=== PATIENT | male | born 1935 | race Hispanic/Latino ===

== ENCOUNTER 2023-12-12 21:06 | Inpatient (IN) | payer OTHER, SELFPAY ==
[2023-12-12 13:20] VITALS: BP 120/72
[2023-12-12 13:43] LABS: % Basophils 0.6 % (0-2); % Eosinophils 1.4 % (0-6); % Immature Granulocytes 0.2 % (0-0.5); % Lymphocytes 11.8 % (20.5-51.1); % Monocytes 8.4 % (1.7-9.3); % Neutrophils 77.6 % (42.2-75.2); Absolute Eosinophils 0.1 10^3/uL (0-0.7); Absolute Lymphocytes 0.6 10^3/uL (1.2-3.4); Absolute Monocytes 0.4 10^3/uL (0.1-0.6); Absolute Neutrophils 3.9 10^3/uL (1.4-6.5); Hematocrit 41.7 % (39.0-52.0); Hemoglobin 13.7 g/dL (13.0-18.0); Mean Corp Hgb Conc. 32.9 g/dL (33.0-37.0); Mean Corpuscular Hgb 31.5 pg (27.0-31.0); Mean Corpuscular Volume 95.9 fL (80.0-94.0); Mean Platelet Volume 10.6 fL (7.4-10.4); Nucleated Red Blood Cells % 0 % (-); Platelet Count 146 10^3/uL (130-400); Red Blood Cell Count 4.35 10^6/uL (4.70-6.10); Red Cell Dist. Width 12.9 % (11.5-14.5)
[2023-12-12 14:06] LABS: ALT (SGPT) 35 U/L (0-50); AST (SGOT) 42 U/L (17-59); Albumin 3.2 g/dl (3.5-5.0); Alkaline Phosphatase 57 U/L (38-126); Blood Urea Nitrogen 19 mg/dl (9-20); Calcium 8.9 mg/dl (8.4-10.2); Carbon Dioxide 36 mmol/L (22-30); Chloride 90 mmol/L (98-107); Glucose 145 mg/dl (70-99); Potassium 4.3 mmol/L (3.5-5.1); Sodium 130 mmol/L (135-145); Total Bilirubin 1.1 mg/dl (0.2-1.3); Total Protein 5.9 g/dl (6.3-8.2); eGFR > 60.00
--- NOTE | 2023-12-12 16:06 | ED.GENMED ---
History of Present Illness
General
Chief Complaint: Breathing Problem
Time Seen by Provider: 12/12/23 15:29
Travel History
Have you had any contact with someone who has COVID-19?: No
Do you have any symptoms of coronavirus? Fever > 100 degrees, chills, cough, shortness of breath, sore throat, loss of taste or smell, muscle aches, or headache?: No
History of Present Illness
History of Present Illness:
88-year-old male with history of A-fib and heart failure with reduced ejection fraction presents to the emergency department with multitude of complaints. He states that he has been short of breath for the past 4 months but acutely worse in the
past 3 to 4 days. 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 Has not taken these in at least 1 week. His last echocardiogram was in 2022 showing ejection
fraction of 30 to 35%. Secondarily the patient notes progressive worsening of weakness and difficulty walking, has been undergoing outpatient evaluation through neurology for an neuromuscular disorder, approximately 1 week ago had an outpatient EMG
with the following findings:
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
disease cannot be ruled out due to active denervation in bilateral L5/S1 nerve root innervated muscles'
Past History
Past History
ED Past Medical History: Arrthythmia
ED Past Surgical History: Cardiac
Social History
Tobacco: Non-smoker
Alcohol: None
Drug: None
Review of Systems
Review of Systems
Allergies reviewed?: Yes
All Other Systems: ROS reviewed and negative except as documented in HPI and ROS
Phy Exam
Physical Exam
Physical Exam:
GEN: Well appearing, NAD, WDWN
HEENT: Oral mucosa moist, no scleral icterus
Cardiac: Regular rate, regular rhythm
Lung: Tachypneic with conversational dyspnea, diminished bibasilar breath sounds
MSK: No gross deformity or injuries, 1+ pitting edema bilateral lower extremities
Skin: Good color, no pallor or jaundice, no rashes
Neuro: AO x3, moves all extremities freely
Psych: Calm, cooperative
Scores
Heart Failure Risk
Heart Failure Risk Score: Yes
History of Stroke or TIA: No
History of intubation for respiratory distress: No
Heart rate on ED arrival >/= 110: No
SaO2 <90% on arrival on room air: No
HR >/=110 during 3min walk test (or too ill to perform test): Yes
ECG has acute ischemic changes: No
Urea >/=12mmol/L (BUN 33.6mg/dL): No
Serum CO2>/=35mmol/L: Yes
Troponin I or T elevated to MS Level (0.4mg/dL): No
NT-proBNP >/=5,000ng/L (5,000pg/ml): No
HF Risk Score: 4
Admission Status: HIGH RISK 26.1% Consider SNF treatment or admission to hospital
Course
Orders/Labs/Results
Orders:
Orders
12/12/23 13:34
Complete Blood Count/With Diff Urgent
Comprehensive Metabolic Panel Urgent
12/12/23 15:41
Prothrombin Time Urgent
12/12/23 15:42
CR Chest - 2 Views Urgent
Comment:
Reason For Exam: SOB
12/12/23 18:29
NT-proBNP Urgent
Troponin I Urgent
Abnormal Lab Results
12/12/23 12/12/23
13:34 15:41
RBC 4.35 L 10^6/uL
(4.70-6.10)
MCV 95.9 H fL
(80.0-94.0)
MCH 31.5 H pg
(27.0-31.0)
MCHC 32.9 L g/dL
(33.0-37.0)
MPV 10.6 H fL
(7.4-10.4)
Absolute Lymphs (auto) 0.6 L 10^3/uL
(1.2-3.4)
Neutrophils % 77.6 H %
(42.2-75.2)
Lymphocytes % 11.8 L %
(20.5-51.1)
PT 42.1 H Sec
(11.4-14.6)
Sodium 130 L mmol/L
(135-145)
Chloride 90 L mmol/L
(98-107)
Carbon Dioxide 36 H mmol/L
(22-30)
Glucose 145 H mg/dl
(70-99)
Total Protein 5.9 L g/dl
(6.3-8.2)
Albumin 3.2 L g/dl
(3.5-5.0)
12/12/23 13:34
12/12/23 13:34
Vital Signs
Initial and Last Documented VS:
Initial Vital Signs
Temp Pulse Resp BP Pulse Ox
98.7 F 105 18 120/72 93
12/12/23 13:20 12/12/23 13:20 12/12/23 13:20 12/12/23 13:20 12/12/23 13:20
Last Documented Vital Signs
Temp Pulse Resp BP Pulse Ox
98.7 F 107 22 150/89 95
12/12/23 13:20 12/12/23 18:45 12/12/23 18:45 12/12/23 18:00 12/12/23 18:45
MDM/Problems Addressed
MDM/Problems Addressed:
Patient's respiratory symptoms are most likely due to acute CHF evidenced by elevated BNP as well as chest x-ray with (independently interpreted by me) revealing cardiomegaly and bilateral trace pleural effusions. In regards to his ambulatory
dysfunction, this is due to an ongoing progressive neuromuscular disorder, does not appear that a definitive diagnosis has been made as of yet however this is certainly contributing to severe functional debility evidenced by poor appetite. I feel
the patient is appropriate for inpatient admission for IV diuresis as his inability to tolerate a significant amount of p.o. food or fluids will make home diuresis challenging as dehydration would potentially become a problem quickly. Will admit to
the hospitalist service for further management
*Critical Care Note
Total Time (30-74mins, 75-104mins- exclusive of procedures): Not Applicable
ED Attending Note
-
Portions of this chart may have been created with voice recognition software.� Occasional wrong word or��sound alike� substitutions may have occurred due to the inherent limitations of voice recognition software.
Discharge Plan
Departure
Patient Disposition: Admit
Date of Disposition: 12/12/23
Time of Disposition: 19:30
Presentation/result/management discussed w/ accepting MD/DO: Hospitalist
Discharge Problem:
Acute HFrEF (heart failure with reduced ejection fraction), Neuromuscular disorder
Prescriptions:
No Action
atorvastatin [Lipitor] 40 mg Tablet
40 mg PO HS
carvedilol [Coreg] 25 mg Tablet
25 mg PO BID
acetaminophen [Tylenol] 325 mg Tablet
650 mg PO Q4HPRN PRN (Reason: mild pain)
Metamucil Packet
1 packet PO DAILY
Entresto 24-26 mg Tablet
1 tab PO BID
Rx Instructions:
patient has free samples 12/12/23
warfarin [Jantoven] 2 MG tablet
2 mg PO BID
Referrals:
Prakash Schreiber MD [Family Provider] -
Interventions
Interventions:
*Risk Screen - Suicide Last Done: 12/12/23 13:24
*General Assessment Last Done: 12/12/23 13:24
*Neglect/Abuse Screening Last Done: 12/12/23 13:24
ED- Cardiac Assessment Last Done: 12/12/23 16:26
ED- Neurological Assessment Last Done: 12/12/23 16:26
ED- Pulmonary Assessment Last Done: 12/12/23 16:26
[2023-12-12 16:13] VITALS: BP 125/87
[2023-12-12 16:34] LABS: INR 4.33; PT 42.1 Sec (11.4-14.6)
[2023-12-12 17:00] VITALS: BP 127/82
[2023-12-12 18:00] VITALS: BP 150/89
[2023-12-12 19:27] LABS: NT-proBNP 3010 pg/ml; Troponin I < 0.012 ng/ml
--- NOTE | 2023-12-12 20:06 | HPS.HSE ---
Addendum entered and electronically signed by Julian Mercado MD 12/12/23 22:08:
INR of 4.3. Hold evening dose of Coumadin. Coumadin can also be changed to once a day, defer to cardiology. Recheck INR in AM.
Original Note:
Family Physician
-
Family Physician: Prakash Schreiber
Chief Complaint
-
shortness of breath
History of Present Illness
88-year-old male past medical history of atrial fibrillation, HFrEF, persistent atrial fibrillation, presenting for shortness of breath for the past 4 months acutely worse in the past 3 to 4 days. Shortness of breath worse with exertion when he
lies down flat. 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 He has not taken diuretic in at least 1 week.
Patient has been having symptoms of decreased appetite, weight loss of 50 pounds in the past few month as well as abdominal distention and inability to eat as much as before. He saw a GI doctor and had barium swallow done which was unremarkable.
Endoscopy was being considered. Patient also had several laboratory tests which were unremarkable.
Patient has also been having progressive weakness and difficulty walking and initially saw physical therapy who recommended he follow-up with neurology.
He has been undergoing outpatient evaluation with neurologist at [place] for neuromuscular disorder. 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
mixture of axonal degeneration and demyelination with active denervation and chronic nerve degeneration, however no motor neuron disease cannot be ruled out due to active denervation in bilateral L5/S1 nerve root innervated muscles'. His
neurologist was considering diagnosis of ALS.
No smoking or alcohol use.
Medical History
Past Medical History
Past Medical History: Reports Other (atrial fibrillation, HFrEF, persistent atrial fibrillation)
Past Surgical History: Reports None
Social History
Tobacco: Non-smoker
Alcohol: None
Drug: None
Family History
Family History: Not pertinent
Allergies / Home Medications
Allergies reflects when Allergies were last updated in [facility].
Home Medications with original date entered in [employer]
Allergy/Medication List:
Allergies
Allergy/AdvReac Type Severity Reaction Status Date / Time
lisinopril Allergy Unknown Verified 12/12/23 13:20
valsartan Allergy Unknown Verified 12/12/23 13:20
Home Medications
acetaminophen 325 mg tablet (Tylenol) 650 mg PO Q4HPRN PRN mild pain 12/12/23
atorvastatin 40 mg tablet (Lipitor) 40 mg PO HS 12/12/23
carvedilol 25 mg tablet (Coreg) 25 mg PO BID 12/12/23
psyllium 1 packet PO DAILY 12/12/23
sacubitril 24 mg-valsartan 26 mg tablet (Entresto) 1 tab PO BID 12/12/23
warfarin 2 mg tablet (Jantoven) 2 mg PO BID 12/12/23
Review of Systems
-
History Source: Patient
A 12 point ROS was completed and negative except as noted: Yes
Constitutional: Reports No Symptoms
EENT: Reports No Symptoms
Respiratory: Reports See HPI
Cardiac: Reports See HPI
Abdomen/GI: Reports No Symptoms
: Reports No Symptoms
Musculoskeletal: Reports No Symptoms
Skin: Reports No Symptoms
Neurological: Reports No Symptoms
Endocrine: Reports No Symptoms
Hematologic/Lymphatic: Reports No Symptoms
Psych: Reports No Symptoms
Physical Exam
Vital Signs
Vital Signs
Temp Pulse Resp BP Pulse Ox
98.7 F 92 26 150/89 96
12/12/23 13:20 12/12/23 19:45 12/12/23 19:45 12/12/23 18:00 12/12/23 19:45
Physical Exam
General: Well Developed, Well Nourished and No Apparent Distress
HEENT: NormoCephalic, Moist mucous membranes and Atraumatic
Respiratory: Clear
Cardiac: S1/S2, Regular Rhythm and Peripheral Edema; No Murmur or Rub
GI: Soft, Non Tender, Non Distended and Normal Bowel Sounds; No Organomegaly
Rectal: Deferred by Provider
Musculoskeletal: No Clubbing, No Cyanosis and No Edema
Skin: No Rash
Neuro: Nonfocal/grossly intact
Laboratory Results
-
12/12/23 13:34
12/12/23 13:34
Laboratory Results
PT 42.1 Sec (11.4-14.6) H 12/12/23 15:41
INR 4.33 12/12/23 15:41
Total Bilirubin 1.1 mg/dl (0.2-1.3) 12/12/23 13:34
AST 42 U/L (17-59) 12/12/23 13:34
ALT 35 U/L (0-50) 12/12/23 13:34
Alkaline Phosphatase 57 U/L (38-126) 12/12/23 13:34
Troponin I < 0.012 ng/ml 12/12/23 18:29
Data Reviewed
-
Lab Data: Labs Reviewed by me
Old Records: Reviewed
Impression/Plan
-
IMPRESSION:
PLAN:
# Acute on chronic HFrEF
-Chest x-ray shows cardiomegaly, possible mild pulmonary edema, report pending
-Cardiac BNP of 3000
-Check I's and O's, daily weight
-40 IV Lasix daily
-Continue Coreg
-Continue Entresto
-Cardiology consulted
Persistent atrial fibrillation
-Continue Coumadin
Underlying neuromuscular disorder
-Daughter requesting LP, recommend patient follow-up with his neurologist at [place] regarding further testing
-PT/OT
Lack of appetite/ weight loss
-Unclear etiology, could be related to underlying neuromuscular disorder
-Continue to follow-up with GI
Full code
DVT prophylaxis�Coumadin
Cardiac diet
[2023-12-12] MEDS: LASIX 40 MG IV (20:25)
[2023-12-12 22:00] VITALS: BP 139/95
[2023-12-12] MEDS: LIPITOR 40 MG PO (22:41)
[2023-12-13] VITALS (20 sets, daily range): BP systolic 63–125; BP diastolic 40–75; O2SAT 94; BMI 21.2; BMI 19.6
[2023-12-13 04:34] LABS: % Basophils 0.6 % (0-2); % Eosinophils 0.4 % (0-6); % Immature Granulocytes 0.3 % (0-0.5); % Lymphocytes 12.6 % (20.5-51.1); % Monocytes 7.7 % (1.7-9.3); % Neutrophils 78.4 % (42.2-75.2); Absolute Lymphocytes 0.9 10^3/uL (1.2-3.4); Absolute Monocytes 0.5 10^3/uL (0.1-0.6); Absolute Neutrophils 5.3 10^3/uL (1.4-6.5); Hematocrit 44.3 % (39.0-52.0); Hemoglobin 14.6 g/dL (13.0-18.0); Mean Corpuscular Hgb 31.9 pg (27.0-31.0); Mean Corpuscular Volume 96.7 fL (80.0-94.0); Mean Platelet Volume 11.1 fL (7.4-10.4); Nucleated Red Blood Cells % 0 % (-); Platelet Count 171 10^3/uL (130-400); Red Blood Cell Count 4.58 10^6/uL (4.70-6.10); Red Cell Dist. Width 13.1 % (11.5-14.5); White Blood Cell Count 6.7 10^3/uL (4.8-10.8)
[2023-12-13 04:49] LABS: INR 3.75; PT 37.6 Sec (11.4-14.6)
[2023-12-13 04:59] LABS: ALT (SGPT) 36 U/L (0-50); AST (SGOT) 44 U/L (17-59); Albumin 3.7 g/dl (3.5-5.0); Alkaline Phosphatase 63 U/L (38-126); Blood Urea Nitrogen 17 mg/dl (9-20); Calcium 8.9 mg/dl (8.4-10.2); Carbon Dioxide 39 mmol/L (22-30); Chloride 90 mmol/L (98-107); Glucose 90 mg/dl (70-99); Potassium 4.2 mmol/L (3.5-5.1); Sodium 132 mmol/L (135-145); Total Bilirubin 1.1 mg/dl (0.2-1.3); Total Protein 6.6 g/dl (6.3-8.2); eGFR > 60.00
--- NOTE | 2023-12-13 07:22 | CON.CAR ---
Addendum entered and electronically signed by Kevin Kraus MD 12/13/23 12:58:
I saw and examined the patient.
The ESTATE PLANNING ATTORNEY or PA's note was reviewed and I agree with the note.
Comment: General: Well developed, well nourished in NAD.
Neck: Supple, no JVD, HJR, carotids +2 B/L, no bruits bilaterally.
Heart: Non displaced PMI, Irreg,, no murmurs, No S3, S4, no rubs.
Lungs: Scattered rhonchi
Abdomen: Normal bowel sounds, soft, non-tender, non-distended.
Extremities: No clubbing, cyanosis or edema bilaterally.
Neuro: Grossly nonfocal, awake, alert and oriented x3.
Tolu has a history of cardiomyopathy with ejection fraction of 35 to 40% in May 2023, chronic systolic CHF, permanent atrial fibrillation on chronic Coumadin, moderate MR. He presents with worsening shortness of breath and acute systolic CHF also
appears to have poorly controlled atrial fibrillation at rest with heart rates in the 100s.
Discussed with patient, , daughter at bedside. He has been reluctant to do procedures in the past and defibrillator has been considered on multiple visits. Of note he had called the office in the past with complaints of edema and took 2 doses
of Lasix but stopped it on his own.
Will attempt to diurese with IV Lasix. Will add amiodarone for rate control of atrial fibrillation. Will check echocardiogram. Will assess after treatment..
Original Note:
Consultation
Consultation Request
Date/Time Consultation Requested: 12/12/23 at 2307
Date/Time Consultation Performed: 12/13/23 at 0723
Requesting Provider: Dr. Garza
Performing Provider: Dr. Parham
Reason for Consultation: Acute HF
Medical History
-
History of Present Illness:
Patient came to [facility] yesterday with increased SOB and is now admitted with acute HF and cardiology has been consulted. Patient says that he started to feel poorly about 6 weeks ago, but he was trying to wait until his scheduled office visit with
Efra 12/19/23. Patient says that he has orthopnea, CASTILLO, edema and now resting SOB so he finally came to [facility] last night. Patient is not sure what his dry weight is, but at last office visit 08/23/23 he weighed 139 lbs and today he weighs 135 lbs.
Patient says that he has not been eating well. At office visit 08/23/23 it was discovered that patient stopped Lasix on his own due to constipation, but he was agreeable to restart Lasix 20 mg PO daily. Patient is no longer taking Lasix for unclear
reasons, but says that he watches his salt and fluid intake although cannot say what the daily limitations are.
PMH:
Chronic HFrEF
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
Permanent Afib
Chronic warfarin OAC managed by [facility]
h/o moderate MR
Past Medical History
Past Medical History: Other (in HPI)
Past Surgical History: Cardiac (PVI 2010)
Social History
Tobacco: Non-Smoker
Alcohol: None
Drug: None
Personal:
Living: With Family
Family History
Family History: Reviewed & Not Pertinent
Allergies / Home Medications
Allergy/AdvReac Type Severity Reaction Status Date / Time
lisinopril Allergy Unknown Verified 12/12/23 13:20
valsartan Allergy Unknown Verified 12/12/23 13:20
Medication Instructions Recorded Confirmed Type
acetaminophen 325 mg tablet 650 mg PO Q4HPRN PRN mild pain 12/12/23 12/12/23 History
(Tylenol)
atorvastatin 40 mg tablet (Lipitor) 40 mg PO HS 12/12/23 12/12/23 History
carvedilol 25 mg tablet (Coreg) 25 mg PO BID 12/12/23 12/12/23 History
psyllium 1 packet PO DAILY 12/12/23 12/12/23 History
sacubitril 24 mg-valsartan 26 mg 1 tab PO BID 12/12/23 12/12/23 History
tablet (Entresto)
warfarin 2 mg tablet (Jantoven) 2 mg PO BID 12/12/23 12/12/23 History
Review of Systems
-
History Source: Patient
All other systems: Negative unless noted
Physical Exam
Vital Signs
Temp Pulse Resp BP Pulse Ox
98.5 F 102 32 104/65 98
12/13/23 03:00 12/13/23 06:15 12/13/23 06:34 12/13/23 02:00 12/13/23 06:15
GEN: NADJeison RIOSO x3
HEENT: EOMI, MMM
LUNGS: CTA B/L without wheeze or rales
CV: Irreg irreg and fast, S1/S2, no murmur
ABD: soft, BS+, NT, ND
EXT: +1 B/L LE edema. No clubbing, cyanosis or lesions B/L
NEURO: Gross non-focal
SKIN: Warm, dry and pink. No rash
Lab Results
12/13/23 04:28
12/13/23 04:28
Troponin I < 0.012 ng/ml 12/12/23 18:29
Rxx-S-Nfnnxhgarvy Pept 3010 pg/ml 12/12/23 18:29
Impression / Plan
-
PCP: Dr. Prakash Schreiber
Cardiology: Dr. Kraus
Impression:
Acute hypoxemic respiratory insufficiency
Acute on chronic HFrEF
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
Permanent Afib
Chronic warfarin OAC managed by [facility]
h/o moderate MR
EVE 2010: EF 30%, moderate MR with 2 distinct jets
�
Plan:
-Patient came to [facility] yesterday with increased SOB and is now admitted with acute HF and cardiology has been consulted. Patient says that he started to feel poorly about 6 weeks ago, but he was trying to wait until his scheduled office visit with
Dr. Kraus 12/19/23. Patient says that he has orthopnea, CASTILLO, edema and now resting SOB so he finally came to [facility] last night. Patient is not sure what his dry weight is, but at last office visit 08/23/23 he weighed 139 lbs and today he weighs 135
lbs. Patient says that he has not been eating well. At office visit 08/23/23 it was discovered that patient stopped Lasix on his own due to constipation, but he was agreeable to restart Lasix 20 mg PO daily. Patient is no longer taking Lasix for
unclear reasons, but says that he watches his salt and fluid intake although cannot say what the daily limitations are.
-Patient is in acute HF and requiring oxygen at 2 L NC, but was not on supplemental oxygen prior to admission.
-Last office note from 08/23/23 reviewed and patient was prescribed Lasix 20 mg PO daily, but he is no longer taking for unclear reasons. He has previously stopped Lasix due to constipation. Will start Lasix 40 mg IV daily now.
-Dry weight not clear and will need to establish a new dry weight at time of discharge.
-Check echo
-GDMT includes Coreg 25 mg BID and Entresto 24/26 mg BID.
-Aldactone previously stopped due to hypotension.
-No ECG was checked. ECG ordered by me, will review.
-Afib is permanent. HRs controlled with Coreg 25 mg BID which has been continued.
-Patient is chronically on warfarin managed by [facility] with an INR goal of 2-3. INR was supratherapeutic at 4.33 on admission 12/12/23 and warfarin was held. INR drifted down to 3.75 on 12/13/23.
[2023-12-13] MEDS: COREG PO ×2 (08:17→20:35)
[2023-12-13] MEDS: ENTRESTO 24 MG/26 MG 1 TAB PO ×2 (08:17→21:23)
[2023-12-13] MEDS: METAMUCIL, KONSYL 1 PACKET PO (08:18)
[2023-12-13] MEDS: LASIX 40 MG IV (10:00)
--- NOTE | 2023-12-13 11:19 | W.PN.HOSP.TC ---
Today's Communication/Plan
-
Had to hold his carvedilol this morning due to underlying hypotension
Awaiting 2D echocardiogram and cardiology input
Continue to hold warfarin and DCA will manage
Continued attempted diuresis noting ongoing hypotension
Will consider neurology input but already followed at [facility] and would recommend further follow-up as outpatient with them
Assessment / Plan
Assessment / Plan
88-year-old male past medical history of atrial fibrillation, HFrEF, persistent atrial fibrillation, presenting for shortness of breath for the past 4 months acutely worse in the past 3 to 4 days.� Shortness of breath worse with exertion when he
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
Patient has been having symptoms of decreased appetite, weight loss of 50 pounds in the past few month as well as abdominal distention and inability to eat as much as before.� He saw a GI doctor and had barium swallow done which was unremarkable.�
Endoscopy was being considered.� Patient also had several laboratory tests which were unremarkable.
Patient has also been having progressive weakness and difficulty walking and initially saw physical therapy who recommended he follow-up with neurology.
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
mixture of axonal degeneration and demyelination with active denervation and chronic nerve degeneration, however no motor neuron disease cannot be ruled out due to active denervation in bilateral L5/S1 nerve root innervated muscles'.� His
neurologist was considering diagnosis of ALS.
No smoking or alcohol use.
# Acute on chronic HFrEF
-Chest x-ray shows cardiomegaly, possible mild pulmonary edema, report pending
-Cardiac BNP of 3000
-Check I's and O's, daily weight
-40 IV Lasix daily
-Continue Coreg
-Continue Entresto
-Cardiology consulted
Persistent atrial fibrillation
-Continue Coumadin
-Supratherapeutic on presentation initial course held
-Managed by [facility]
Underlying neuromuscular disorder
-Daughter requesting LP,� recommend patient follow-up with his neurologist at [place] regarding further testing
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
degeneration, however no motor neuron disease cannot be ruled out due to active denervation in bilateral L5/S1 nerve root innervated muscles'.� His neurologist was considering diagnosis of ALS.
-PT/OT
Lack of appetite/ weight loss
-Unclear etiology, could be related to underlying neuromuscular disorder
-Continue to follow-up with GI
Full code
DVT prophylaxis�Coumadin
Cardiac diet
Anticipated Discharge: 24 - 48 hours
Subjective/Interval History
-
Date of Service: December 13, 2023
Patient in no acute distress remains short of breath and states that he gets easily short of breath even after lying down reportedly for at least the last several weeks admits to noncompliance with Lasix for at least 6 months remains on supplemental
oxygen of which she does not use at home
Objective Data
-
Labs:
Laboratory Results
12/13/23
04:28
WBC 6.7
Hgb 14.6
Hct 44.3
Plt Count 171
PT 37.6 H
INR 3.75
Sodium 132 L
Potassium 4.2
Chloride 90 L
Carbon Dioxide 39 H
BUN 17
Creatinine 0.8
Glucose 90
Calcium 8.9
Total Bilirubin 1.1
AST 44
ALT 36
Alkaline Phosphatase 63
Vital Signs:
Vital Signs
Temp Pulse Resp BP Pulse Ox
98.5 F 100 22 63/55 98
12/13/23 03:00 12/13/23 11:00 12/13/23 11:00 12/13/23 11:00 12/13/23 11:00
I&O
12/12/23 12/13/23 12/14/23
06:59 06:59 06:59
Output Total 300 / 300
Balance -300 / -300
Review of Systems
-
History Source: Patient
Respiratory: Reports Trouble Breathing
Musculoskeletal: Reports Edema (Left lower extremity always worse than right)
Physical Exam
-
General: Comfortable
HEENT: Normocephalic
Respiratory: Rales and Crackles
Cardiac: Irregular Rhythm, Murmur and Tachycardic
GI: Soft and Nondistended
Musculoskeletal: Edema, Left Lower Extrem
Neuro: Awake
Psych: Calm
--- NOTE | 2023-12-13 16:00 | PTCARENOTE ---
12/13- Patient oriented and transferred to unit without issue. AAOX3, on 2L O2 with nonproductive deep wet cough. Currently denies any requests or issues.
[2023-12-13] MEDS: LIPITOR 40 MG PO (21:23)
[2023-12-13] MEDS: MELATONIN 3 MG PO (21:23)
[2023-12-13] MEDS: COREG 12.5 MG PO (21:23)
--- NOTE | 2023-12-13 23:42 | PTCARENOTE ---
Addendum entered by Hamzah Borrero RN 12/14/23 04:50:
Pt sustaining 120s-30s with spikes to 140s-50s with little movement. BP 112/67. PEOPLESOFT ANALYST Kenny Gonzalez made aware, 2.5mg IV lopressor ordered, STAT Mag ordered.
Original Note:
Pt Afib HR sustaining 110s-120s. BP taken twice first 71/40, second 73/39. Pt non symptomatic. Kenny Andrew made aware, PEOPLESOFT ANALYST told to place pt in Trendelenburg position and recheck in 1 hour, no further orders at this time.
[2023-12-14] VITALS (11 sets, daily range): BP systolic 64–112; BP diastolic 48–69; BMI 19.5
--- NOTE | 2023-12-14 04:12 | W.PN.UPDATE ---
Update Note
Progress Note Update
RN notfied SUPERVISOR NET MAKING at 96/52 HR 98, Coreg 12.5mg ordered for HR control and held the Coreg 25mg PO at night. BP noted to be soft in 70's, but came up in one hour at 98/57 HR 110. Patient asymptomatic upon evaluation
At 0415 RN notified BP 112/67 HR sustaining 120's-130's, HR increase to 140's with ambulation. Will give Lopressor 2.5mg IV now and will do CBC BMP Mag now.
[2023-12-14] MEDS: LOPRESSOR 2.5 MG IV (04:34)
[2023-12-14 05:16] LABS: Magnesium 1.6 mg/dl (1.6-2.3)
--- NOTE | 2023-12-14 08:15 | PTCARENOTE ---
12/14- Patient's currently in Rapid AFib on electronic device monitor with HR sustaining in 130s. BP=85/55, so morning Coreg held. Patient is AAOX3, drowsy, lightheaded, but skin=warm/pink/dry. Patient has EFRedHF. Notified Cardiology PA. Will continue
to monitor.
[2023-12-14] MEDS: COREG PO ×2 (08:18→20:42)
[2023-12-14] MEDS: ENTRESTO 24 MG/26 MG 1 TAB PO (08:19)
[2023-12-14] MEDS: METAMUCIL, KONSYL 1 PACKET PO (08:20)
[2023-12-14] MEDS: LASIX 40 MG IV (08:21)
--- NOTE | 2023-12-14 08:55 | W.PN.CARDCBS ---
Documented by User: Meryl Huerta PA-C 12/14/23 12:37
Today's Communication / Plan
-
Start amio 200 mg TID
Impression / Plan
-
PCP: Dr. Prakash Schreiber
Cardiology: Dr. Kraus
Impression:
Acute hypoxemic respiratory insufficiency
Acute on chronic HFrEF
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
Permanent Afib with RVR
Chronic warfarin OAC managed by [facility]
h/o moderate MR
EVE 2010: EF 30%, moderate MR with 2 distinct jets
Echo 06/14/23: EF 35-40%, mild conc LVH, mild MR, aortic sclerosis without stenosis
Echo 12/14/23: Study pending
�
Plan:
-Patient with known permanent Afib. HRs faster since admission. Outpatient dose of Coreg 25 mg BID ordered, but doses being held due to hypotension. Will add definitive hold parameters.
-Start amiodarone 200 mg TID.
-LFTs normal. Check TSH
-Repeat echo pending
-Weight down at least 1 lb overnight with Lasix 40 mg IV daily. Patient was not taking Lasix prior to admission. He stopped Lasix PO at home on his own for the 2nd time prior to this admission.
-Dry weight not clear and will need to establish a new dry weight at time of discharge.
-Continues to require oxygen at 2 L NC, but was not on supplemental oxygen prior to admission.
-Echo ordered and pending
-GDMT includes Coreg 25 mg BID and Entresto 24/26 mg BID.
-Aldactone previously stopped due to hypotension.
-ECG reviewed by me shows Afib in RVR
-Patient is chronically on warfarin managed by [facility] with an INR goal of 2-3. INR was supratherapeutic at 4.33 on admission 12/12/23 and warfarin was held. INR drifted down to 2.68 on 12/14/23.
HPI: Patient came to [facility] yesterday with increased SOB and is now admitted with acute HF and cardiology has been consulted. Patient says that he started to feel poorly about 6 weeks ago, but he was trying to wait until his scheduled office visit
with Dr. Kraus 12/19/23. Patient says that he has orthopnea, CASTILLO, edema and now resting SOB so [facility]. Patient is not sure what his dry weight is, but at last office visit 08/23/23 he weighed 139 lbs and today he weighs
135 lbs. Patient says that he has not been eating well. At office visit 08/23/23 it was discovered that patient stopped Lasix on his own due to constipation, but he was agreeable to restart Lasix 20 mg PO daily. Patient is no longer taking Lasix for
unclear reasons, but says that he watches his salt and fluid intake although cannot say what the daily limitations are.
Progress Note - Crossing Watchman
Subjective
Date of Service: December 14, 2023
He does not feel palpitations
Objective
Labs:
12/13/23 04:28
12/13/23 04:
Labs
Hgb 14.6 g/dL (13.0-18.0) 12/13/23 04:28
Hct 44.3 % (39.0-52.0) 12/13/23 04:28
Plt Count 171 10^3/uL (130-400) 12/13/23 04:
PT 37.6 Sec (11.4-14.6) H 12/13/23 04:
INR 3.75 12/13/23 04:28
Sodium 132 mmol/L (135-145) L 12/13/23 04:
Potassium 4.2 mmol/L (3.5-5.1) 12/13/23 04:
BUN 17 mg/dl (9-20) 12/13/23 04:
Creatinine 0.8 mg/dL (0.7-1.3) 12/13/23 04:
Glucose 90 mg/dl (70-99) 12/13/23 04:28
Troponins
12/12/23 12/12/23 12/12/23
15:41 18:21 18:29
Troponin I Cancelled Cancelled < 0.012
Vital Signs and I&O:
Vital Signs
Temp Pulse Resp BP Pulse Ox
98.1 F 133 20 88/60 96
12/14/23 04:03 12/14/23 08:19 12/14/23 04:03 12/14/23 08:19 12/14/23 04:03
Vital Signs
Temp Pulse Resp BP Pulse Ox
98.1 F 133 20 88/60 96
12/14/23 04:03 12/14/23 08:19 12/14/23 04:03 12/14/23 08:19 12/14/23 04:03
Intake & Output
12/12/23 12/13/23 12/14/23 12/15/23
06:59 06:59 06:59 06:59
Intake Total 900 / 900
Output Total 300 / 300 500 / 500
Balance -300 / -300 400 / 400
Physical Exam
Physical Exam
GEN: NAD. AAO x3
HEENT: EOMI, MMM
LUNGS: CTA B/L without wheeze or rales
CV: Irreg irreg and fast, S1/S2, no murmur
ABD: soft, BS+, NT, ND
EXT: +1 B/L LE edema. No clubbing, cyanosis or lesions B/L
NEURO: Gross non-focal
SKIN: Warm, dry and pink. No rash

Documented by User: Jack Kilgore MD 12/14/23 13:13
Impression / Plan
-
PCP: Dr. Prakash Schreiber
Cardiology: Dr. Kraus
Impression:
Acute hypoxemic respiratory insufficiency
Acute on chronic HFrEF
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
Permanent Afib with RVR
Chronic warfarin OAC managed by [facility]
h/o moderate MR
EVE 2010: EF 30%, moderate MR with 2 distinct jets
Echo 06/14/23: EF 35-40%, mild conc LVH, mild MR, aortic sclerosis without stenosis
Echo 12/14/23: Study pending
�
Plan:
-Patient with known permanent Afib. HRs faster since admission. Outpatient dose of Coreg 25 mg BID ordered, but doses being held due to hypotension. Will add definitive hold parameters.
-Start amiodarone 200 mg TID-hopefully this can help as an adjunct rate control agent
-LFTs normal. Check TSH
-Repeat echo pending
-Weight down at least 1 lb overnight with Lasix 40 mg IV daily. His weight on this admission is much lower than prior available weights, cardiac cachexia?
Patient was not taking Lasix prior to admission. He stopped Lasix PO at home on his own for the 2nd time prior to this admission.
-Dry weight not clear and will need to establish a new dry weight at time of discharge.
-Continues to require oxygen at 2 L NC, but was not on supplemental oxygen prior to admission.
-Echo ordered and pending
-GDMT includes Coreg 25 mg BID and Entresto 24/26 mg BID.
-Aldactone previously stopped due to hypotension.
-ECG reviewed by me shows Afib in RVR
-Patient is chronically on warfarin managed by [facility] with an INR goal of 2-3. INR was supratherapeutic at 4.33 on admission 12/12/23 and warfarin was held. INR drifted down to 2.68 on 12/14/23.
HPI: [facility] with increased SOB and is now admitted with acute HF and cardiology has been consulted. Patient says that he started to feel poorly about 6 weeks ago, but he was trying to wait until his scheduled office visit
with Dr. Kraus 12/19/23. Patient says that he has orthopnea, CASTILLO, edema and now resting SOB so he [facility]. Patient is not sure what his dry weight is, but at last office visit 08/23/23 he weighed 139 lbs and today he weighs
135 lbs. Patient says that he has not been eating well. At office visit 08/23/23 it was discovered that patient stopped Lasix on his own due to constipation, but he was agreeable to restart Lasix 20 mg PO daily. Patient is no longer taking Lasix for
unclear reasons, but says that he watches his salt and fluid intake although cannot say what the daily limitations are.
Progress Note - Crossing Watchman
Subjective
Date of Service: December 14, 2023
He does not feel palpitations
arousable but not oriented to place
--- NOTE | 2023-12-14 09:00 | PTCARENOTE ---
12/14- Administered Pacerone 200mg PO as ordered. Will recheck BP and HR. Patient is mildly confused but AAOX3, dizzy upon standing, but +pulses/sensationX4; Skin still warm/pink/dry; cyanotic fingernails. Patient had removed his NC, so POX=78%.
POX returned to 91% with 3L O2.
[2023-12-14] MEDS: PACERONE 200 MG PO ×3 (09:30→23:33)
--- NOTE | 2023-12-14 10:40 | W.PN.HOSP.TC ---
Today's Communication/Plan
-
Can to continue IV diuresis
Hypertension continues to be an issue and holding beta-blockade
Undergoing amiodarone loading/remains with RVR
Check PT/INR next 3 days after holding cardiology will dose
Assessment / Plan
Assessment / Plan
88-year-old male past medical history of atrial fibrillation, HFrEF, persistent atrial fibrillation, presenting for shortness of breath for the past 4 months acutely worse in the past 3 to 4 days.� Shortness of breath worse with exertion when he
lies down flat.� He is on diuretics from his functional analyst but he only takes it intermittently for leg swelling.� He has not taken diuretic in at least 1 week.
Patient has been having symptoms of decreased appetite, weight loss of 50 pounds in the past few month as well as abdominal distention and inability to eat as much as before.� He saw a GI doctor and had barium swallow done which was unremarkable.�
Endoscopy was being considered.� Patient also had several laboratory tests which were unremarkable.
Patient has also been having progressive weakness and difficulty walking and initially saw physical therapy who recommended he follow-up with neurology.
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
mixture of axonal degeneration and demyelination with active denervation and chronic nerve degeneration, however no motor neuron disease cannot be ruled out due to active denervation in bilateral L5/S1 nerve root innervated muscles'.� His
neurologist was considering diagnosis of ALS.
No smoking or alcohol use.
# Acute on chronic HFrEF
-Chest x-ray shows cardiomegaly, possible mild pulmonary edema, report pending
-Cardiac BNP of 3000
-Check I's and O's, daily weight
-40 IV Lasix daily
-Continue Coreg/reduced dosing due to hypotension and held yesterday
-Continue Entresto
-Noncompliance to diuretic management has been an issue
-Cardiology consulted
Persistent atrial fibrillation
-Cardiology added amiodarone remains with RVR
-Continue Coumadin
-Supratherapeutic on presentation initial course held
-Managed by [facility]
Underlying neuromuscular disorder
-Daughter requesting LP,� recommend patient follow-up with his neurologist at [facility] regarding further testing
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
degeneration, however no motor neuron disease cannot be ruled out due to active denervation in bilateral L5/S1 nerve root innervated muscles'.� His neurologist was considering diagnosis of ALS.
-PT/OT
Lack of appetite/ weight loss
-Unclear etiology, could be related to underlying neuromuscular disorder
-Continue to follow-up with GI
Full code
DVT prophylaxis�Coumadin
Cardiac diet
Anticipated Discharge: 24 - 48 hours
Subjective/Interval History
-
Date of Service: December 14, 2023
He looks less dyspneic although he admits to no improvement in his breathing especially in the morning. He is does state that there is less swelling.
Objective Data
-
Vital Signs:
Vital Signs
Temp Pulse Resp BP Pulse Ox
98.9 F 133 22 102/72 99
12/14/23 07:30 12/14/23 09:30 12/14/23 07:30 12/14/23 09:30 12/14/23 07:30
I&O
12/13/23 12/14/23 12/15/23
06:59 06:59 06:59
Intake Total 900 / 900
Output Total 300 / 300 500 / 500
Balance -300 / -300 400 / 400
Review of Systems
-
History Source: Patient
Constitutional: Reports Not Done and Fatigue
EENT: Reports No Symptoms Reported
Respiratory: Reports Trouble Breathing and Other (Remains on low-flow oxygen)
Cardiac: Reports No Symptoms
Abdomen/GI: Reports No Symptoms
Psych: Reports Depressed
Physical Exam
-
General: No Apparent Distress
HEENT: Normocephalic
Respiratory: Crackles
Cardiac: Irregular Rhythm and Tachycardic (RVR remains in the 140s at times)
GI: Soft and Nontender
Musculoskeletal: Edema, Right Lower Extrem and Edema, Left Lower Extrem (Improved/weight only down less than a half a kilo)
Neuro: Awake, Alert, Oriented and AO x 3
Data Reviewed
-
Total Time Spent with Patient (in minutes): 45
Labs: Labs Reviewed by me (Hemoglobin 14.6 and stable)
--- NOTE | 2023-12-14 11:00 | PTCARENOTE ---
12/14- Patient's HR is still sustaining in 120s in rapid AFib; BP= 88/55 manual, with 69/50 automatic. Notified PA, held Lopressor IV. Patient remains drowsy, AAOX3, skin=warm/pink/dry with cyanotic fingernails; POX=97% on 3L. Educated patient
and about CHF, Afib, his medications and deep breathing. Both verbalized understanding.
[2023-12-14 11:36] LABS: TSH Reflex To Free T4 1.42 uIU/ml (0.47-4.68)
[2023-12-14 11:59] LABS: INR 2.68; PT 28.9 Sec (11.4-14.6)
--- NOTE | 2023-12-14 13:02 | W.PN.UPDATE ---
Update Note
Progress Note Update
Called back to see patient for Afib in RVR and hypotension. Patient's only complaint is that he feels warm/hot around his rectum. No chest pain. Continues with stable hypoxia requiring 2 L since admission. Attempted tp push Lopressor 5 mg IV x1 and
BP 59/50 and then on recheck 88/50. Will cont with amiodarone 200 mg TID and add amiodarone gtt. Trying to move to IVU, but no beds. Order placed and he is in the queue. Talked with patient and , reviewed chart, talked with nursing and placed
orders for 33 minutes of critical care time.
[2023-12-14] MEDS: CORDARONE 518 MG IV (14:25)
--- NOTE | 2023-12-14 14:40 | PTCARENOTE ---
12/14- Began Amiodorone drip as ordered; checked VS as per Protocol. 15minute vitals showed BP=64/48, JS=775. Patient is resting in bed, AAOX3, mildly drowsy, skin=pale/warm/dry. Notified Physician.
--- NOTE | 2023-12-14 14:43 | PN.CDI ---
CDI
- -
CDI:
Physician Documentation Request
Admit Date: 12/12/23 21:06
Dear Doctor Kayla,
Patient admitted with acute on chronic systolic CHF.
Na level's documented below:
Laboratory Tests
12/12/23 12/13/23
13:34 04:28
Sodium 130 L 132 L
Based on the above, please clarify in the progress notes, the appropriate diagnosis, if significant, that supports the above abnormalities and additional evaluation, monitoring and/or treatment rendered:
Hyponatremia
Insignificant abnormal lab findings
Other
Unable to determine
Use of terms such as suspected, likely, concern for, or probable (associated with a specific diagnosis that is being evaluated, monitored, or treated as if it exists) are acceptable and can be coded in the inpatient setting, when documented at the
time of discharge.
Thank you,
Nuzhat HODGE,RN,CCDS
CDI Specialist
Available via [facility] text
Please use your independent medical judgment in providing your response.
[2023-12-14] MEDS: ProAmatine 5 MG PO (14:59)
--- NOTE | 2023-12-14 15:15 | CM ---
Patient seen bedside.
IA completed.
Patient lives with spouse and son in a 2 story home.
Patient ambulates with cane and has a RW.
Patient independent prior to admission, progressive weakness.
PT recommending home Health.
Patient does drive.
PCP: Dr Schreiber
Pharmacy: [facility]
Plan: home with VN
[2023-12-14] MEDS: ENTRESTO 24 MG/26 MG PO (20:42)
--- NOTE | 2023-12-14 21:32 | PTCARENOTE ---
Pt transferred to IVU. Pt AAOx3, on 2LO2 in no signs of acute distress, receiving nurses at bedside.
[2023-12-14] MEDS: TYLENOL 650 MG PO (23:32)
[2023-12-14] MEDS: LIPITOR 40 MG PO (23:32)
[2023-12-15] VITALS (13 sets, daily range): BP systolic 73–148; BP diastolic 43–132; BMI 19.5
--- NOTE | 2023-12-15 01:28 | PTCARENOTE ---
received patient from 4W at approx 2130. Afib on tele. bp [id number]/60s. amio gtt infusing-dose adjusted per order to 0.5 mg/min. R arm IV patent, no redness noted. labored breathing noted. patient states worsening breathing started at about
5 pm. lungs diminished throughout. 3L NC 92%. patient denies any cp. patient appears anxious. comfort measures provided. patient states sacral pain, 'soreness.' waffle cushion provided. elevated heels on pillows. patient requesting bengay for sacral
pain, 'I use it at home.' updated Rachel Cuevas [employer] on breathing and patient's request; see mar. PRN tylenol given for pain. once patient was settled, patient states improved breathing. appears more comfortable. 96% 3L NC. educated patient to inforn
RN with any changes. call teran within reach. makes needs known.
[2023-12-15 04:47] LABS: Hematocrit 37.3 % (39.0-52.0); Hemoglobin 12.3 g/dL (13.0-18.0); Mean Corpuscular Hgb 31.6 pg (27.0-31.0); Mean Corpuscular Volume 95.9 fL (80.0-94.0); Mean Platelet Volume 10.3 fL (7.4-10.4); Platelet Count 157 10^3/uL (130-400); Red Blood Cell Count 3.89 10^6/uL (4.70-6.10); Red Cell Dist. Width 12.8 % (11.5-14.5); White Blood Cell Count 7.4 10^3/uL (4.8-10.8)
[2023-12-15 05:05] LABS: PT 23.9 Sec (11.4-14.6)
[2023-12-15 05:21] LABS: Blood Urea Nitrogen 22 mg/dl (9-20); Calcium 8.6 mg/dl (8.4-10.2); Chloride 83 mmol/L (98-107); Estimated Creatinine Clearance 47 ml/min; Glucose 145 mg/dl (70-99); Potassium 3.6 mmol/L (3.5-5.1); Sodium 129 mmol/L (135-145); eGFR > 60.00
--- NOTE | 2023-12-15 05:30 | PTCARENOTE ---
Addendum entered by Daniel Melo RN 12/15/23 06:19:
R arm IV site removed (amio IV). improved bp 85/64 (72).
Original Note:
blood pressures this AM, 70s/40s-50s. HR Afib 80s-90s. patient denies any symptoms. AAOx3. updated Rachel Cuevas [employer]. Amio gtt discontinued per [employer].
[2023-12-15 05:36] LABS: Carbon Dioxide 35 mmol/L (22-30)
--- NOTE | 2023-12-15 07:30 | W.PN.HOSP.TC ---
Today's Communication/Plan
-
Amiodarone loading and dosing as per cardiology
Continue IV diuresis
Continue midodrine
Hyponatremia may have to back off on furosemide
Monitor BMP
Restart warfarin and dosing as per cardiology who manages as outpatient
Assessment / Plan
Assessment / Plan
88-year-old male past medical history of atrial fibrillation, HFrEF, persistent atrial fibrillation, presenting for shortness of breath for the past 4 months acutely worse in the past 3 to 4 days.� Shortness of breath worse with exertion when he
lies down flat.� He is on diuretics from his site lead but he only takes it intermittently for leg swelling.� He has not taken diuretic in at least 1 week.
Patient has been having symptoms of decreased appetite, weight loss of 50 pounds in the past few month as well as abdominal distention and inability to eat as much as before.� He saw a GI doctor and had barium swallow done which was unremarkable.�
Endoscopy was being considered.� Patient also had several laboratory tests which were unremarkable.
Patient has also been having progressive weakness and difficulty walking and initially saw physical therapy who recommended he follow-up with neurology.
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
mixture of axonal degeneration and demyelination with active denervation and chronic nerve degeneration, however no motor neuron disease cannot be ruled out due to active denervation in bilateral L5/S1 nerve root innervated muscles'.� His
neurologist was considering diagnosis of ALS.
No smoking or alcohol use.
# Acute on chronic HFrEF
-Chest x-ray shows cardiomegaly, possible mild pulmonary edema, report pending
-Cardiac BNP of 3000
-Check I's and O's, daily weight
-40 IV Lasix daily
-Continue Coreg/reduced dosing due to hypotension and held yesterday
-Continue Entresto
-Noncompliance to diuretic management has been an issue
-Cardiology consulted
Persistent atrial fibrillation
-Cardiology added amiodarone loading /heart rate improved remains hypotensive
- Coumadin/PT/INR today 2.1 can resume warfarin was supratherapeutic present on admission
-Managed by [facility]
Underlying neuromuscular disorder
-Daughter requesting LP,� recommend patient follow-up with his neurologist at [facility] [facility] regarding further testing
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
degeneration, however no motor neuron disease cannot be ruled out due to active denervation in bilateral L5/S1 nerve root innervated muscles'.� His neurologist was considering diagnosis of ALS.
-PT/OT
Lack of appetite/ weight loss
-Metastatic rather extensive GI workup at [facility] which he is going to continue to follow and I believe he is scheduled for a upper endoscopy
-Unclear etiology, could be related to underlying neuromuscular disorder
-Continue to follow-up with GI
Full code
DVT prophylaxis�Coumadin
Cardiac diet
Anticipated Discharge: Within 24 hours
Subjective/Interval History
-
Date of Service: December 15, 2023
In no distress heart rate improved remains hypotensive/went over his recent issues with weight loss and GI workup at [facility] and the need for further follow-up both with [facility] and [facility] in regards to his neuropathy.
Objective Data
-
Labs:
Laboratory Results
12/15/23
04:14
WBC 7.4
Hgb 12.3 L
Hct 37.3 L
Plt Count 157
PT 23.9 H
INR 2.10
Sodium 129 L
Potassium 3.6
Chloride 83 L
Carbon Dioxide 35 H
BUN 22 H
Creatinine 0.9
Glucose 145 H
Calcium 8.6
Vital Signs:
Vital Signs
Temp Pulse Resp BP Pulse Ox
98.1 F 98 20 85/64 96
12/15/23 04:15 12/15/23 07:00 12/15/23 04:15 12/15/23 05:53 12/15/23 04:15
I&O
12/14/23 12/15/23 12/16/23
06:59 06:59 06:59
Intake Total 900 / 900 950 / 950
Output Total 500 / 500 150 / 150
Balance 400 / 400 800 / 800
Review of Systems
-
History Source: Patient
Constitutional: Reports Weight Loss
Respiratory: Reports Other (Dyspnea on exertion)
Cardiac: Reports No Symptoms
Physical Exam
-
General: Appears Chronically Ill and Cachectic (Appears at least underweight)
HEENT: Normocephalic
Respiratory: Rales
Cardiac: Irregular Rhythm
GI: Soft, Nontender and Nondistended
Musculoskeletal: No Edema
Skin: IV Access / Catheter Site
Neuro: Awake and Alert
Data Reviewed
-
Total Time Spent with Patient (in minutes): 56
Labs: Labs Reviewed by me (PT/INR 2.1/sodium 129 chloride 83 creatinine 0.9 blood sugar 145)
[2023-12-15] MEDS: BenGay-Like 1 APPLIC TOPICAL ×4 (08:41→22:16)
[2023-12-15] MEDS: PACERONE 200 MG PO ×3 (08:41→22:16)
[2023-12-15] MEDS: COREG PO ×2 (08:41→09:00)
[2023-12-15] MEDS: METAMUCIL, KONSYL 1 PACKET PO (08:41)
[2023-12-15] MEDS: ENTRESTO 24 MG/26 MG PO ×2 (08:41→09:01)
[2023-12-15] MEDS: FLUSH (NSS) 1 FLUSH IV (08:42)
--- NOTE | 2023-12-15 09:03 | PTCARENOTE ---
Addendum entered by Anat Wen RN 12/15/23 09:05:
He is 96% on RA
Original Note:
Patient's BP was 95/63 with a HR of 94. I held his Coreg and Entresto as per order. Afib is noted on the monitor. He has no complaints of pain or SOB.
--- NOTE | 2023-12-15 09:55 | CM ---
Addendum entered by Chelsea Bowden 12/15/23 13:59:
Received consult regarding checking on co-pay for Eliquis 5 mg po bid. His co-pay would be $47.00 a month or $94.00 for 90 day supply via mail order. Reviewed co-pay with son and and Mrs. Brooks. They are agreeable to the co-pay. Placed the
one month free coupon in the red discharge folder. Also reviewed [facility] with Mr. Brooks and by phone to his spouse. Both of them would like to wait and discuss this with each other before making final decision regarding [facility].
Medical work-up in progress. The discharge plan is to return home with his spouse and son when medically stable.
Original Note:
Reviewed chart. Mr. Brooks was transferred to IVU. Met with Mr. Brooks to review discharge plans. He states prior to admission he resides with his spouse and son in a two story home. He states he has to go up a full flight of steps to
bedroom/full bathroom. He states he has a powder room on the first floor. He states he stays on the first floor and only goes upstairs to sleep. He only goes up the stairs once a day. He states prior to admission he ambulates with a single point
cane. He states he has a single point cane and walker at home. He states he has a prescription plan and uses [facility]. We reviewed [facility]. He states his spouse makes the decision regarding services. He states his son will be in this
afternoon, but his spouse and daughter are out of town. Gave him my card. Medical work-up in progress. The discharge plan is to return home with his spouse and son and [facility] if he is agreeable when medically stable.
[2023-12-15] MEDS: TYLENOL 650 MG PO (12:44)
--- NOTE | 2023-12-15 13:30 | W.PN.CARDCBS ---
Addendum entered and electronically signed by Kevin Kraus MD 12/15/23 13:39:
Will check on cost of Eliquis
Original Note:
Today's Communication / Plan
-
He feels better but weight has not changed much
Entresto and Coreg on hold due to hypotension
Lasix was on hold but will resume as blood pressure has improved to 100 systolic
Will hold Coumadin as may need right and left heart cath if continues to remain on oxygen and will await echocardiogram
Continue amiodarone loading as some of issues may have been poor heart rate control of atrial fibrillation
Impression / Plan
-
PCP: Dr. Prakash Schreiber
Cardiology: Dr. Kraus
Impression:
Acute hypoxemic respiratory insufficiency
Acute on chronic HFrEF
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
Permanent Afib with RVR
Chronic warfarin OAC managed by [facility]
h/o moderate MR
EVE 2010: EF 30%, moderate MR with 2 distinct jets
Echo 06/14/23: EF 35-40%, mild conc LVH, mild MR, aortic sclerosis without stenosis
Lexiscan sestamibi stress test 08/07/2023: Normal perfusion, ejection fraction 45% in the setting of rapid A-fib
Echo 12/14/23: Study pending
�
Plan:
Entresto and carvedilol on hold due to hypotension which has improved
Will give IV Lasix on 12/15 at this was held as well for hypo to
He feels better although weight has not decreased much
Part of the issue may be poor heart rate control of atrial fibrillation which is improved with amiodarone loading
Might need to consider right and left heart catheterization if continues to remain on oxygen
We will hold Coumadin for now
Await echocardiogram
Eventually resume Coreg 25 mg BID and Entresto 24/26 mg BID.
Aldactone previously stopped due to hypotension.
Discussed with patient and son at bedside
-Patient is chronically on warfarin managed by [facility] with an INR goal of 2-3. INR was supratherapeutic at 4.33 on admission 12/12/23 and warfarin was held. INR drifted down to 2.68 on 12/14/23.
HPI: Patient came to [facility] yesterday with increased SOB and is now admitted with acute HF and cardiology has been consulted. Patient says that he started to feel poorly about 6 weeks ago, but he was trying to wait until his scheduled office visit
with Dr. Kraus 12/19/23. Patient says that he has orthopnea, CASTILLO, edema and now resting SOB so he finally came to [facility] last night. Patient is not sure what his dry weight is, but at last office visit 08/23/23 he weighed 139 lbs and today he weighs
135 lbs. Patient says that he has not been eating well. At office visit 08/23/23 it was discovered that patient stopped Lasix on his own due to constipation, but he was agreeable to restart Lasix 20 mg PO daily. Patient is no longer taking Lasix for
unclear reasons, but says that he watches his salt and fluid intake although cannot say what the daily limitations are.
Progress Note - Business Insurance Agent
Subjective
Date of Service: December 15, 2023
No complaints
Objective
Labs:
12/15/23 04:14
12/15/23 04:14
Labs
Hgb 12.3 g/dL (13.0-18.0) L 12/15/23 04:14
Hct 37.3 % (39.0-52.0) L 12/15/23 04:14
Plt Count 157 10^3/uL (130-400) 12/15/23 04:14
PT 23.9 Sec (11.4-14.6) H 12/15/23 04:14
INR 2.10 12/15/23 04:14
Sodium 129 mmol/L (135-145) L 12/15/23 04:14
Potassium 3.6 mmol/L (3.5-5.1) 12/15/23 04:14
BUN 22 mg/dl (9-20) H 12/15/23 04:14
Creatinine 0.9 mg/dL (0.7-1.3) 12/15/23 04:14
Glucose 145 mg/dl (70-99) H 12/15/23 04:14
Troponins
12/12/23 12/12/23 12/12/23
15:41 18:21 18:29
Troponin I Cancelled Cancelled < 0.012
Vital Signs and I&O:
Vital Signs
Temp Pulse Resp BP Pulse Ox
98.0 F 95 20 100/65 92
12/15/23 11:22 12/15/23 11:22 12/15/23 11:22 12/15/23 11:22 12/15/23 11:22
Vital Signs
Temp Pulse Resp BP Pulse Ox
98.0 F 95 20 100/65 92
12/15/23 11:22 12/15/23 11:22 12/15/23 11:22 12/15/23 11:22 12/15/23 11:22
Intake & Output
12/13/23 12/14/23 12/15/23 12/16/23
06:59 06:59 06:59 06:59
Intake Total 900 / 900 950 / 950
Output Total 300 / 300 500 / 500 150 / 150
Balance -300 / -300 400 / 400 800 / 800
Physical Exam
Physical Exam
General: Well developed, well nourished in NAD.
Neck: Supple, no JVD, HJR, carotids +2 B/L, no bruits bilaterally.
Heart: Non displaced PMI, irregular,, no murmurs, No S3, S4, no rubs.
Lungs: Scattered rhonchi
Extremities: No clubbing, cyanosis or edema bilaterally.
Neuro: Grossly nonfocal, awake, alert and oriented x3.
[2023-12-15] MEDS: LASIX 40 MG IV (14:02)
[2023-12-15] MEDS: FLUSH (NSS) 2 FLUSH IV (14:03)
--- NOTE | 2023-12-15 17:16 | PTCARENOTE ---
The patient has been oob and ambulatory to the all shift using a RW. He has had no c/o of SOB while ambulating but still cannot tolerating lying flat. His pulse Ox on RA has been 92-96%. His vitals remain stable. He has c/o of sacral and low back
pain to which Tylenol and Bengay have helped relieve.
[2023-12-15] MEDS: ENTRESTO 24 MG/26 MG 1 TAB PO (20:07)
[2023-12-15] MEDS: COREG 25 MG PO (20:07)
[2023-12-15] MEDS: MELATONIN 3 MG PO (22:16)
[2023-12-15] MEDS: LIPITOR 40 MG PO (22:16)
[2023-12-16] VITALS (18 sets, daily range): BP systolic 80–124; BP diastolic 51–84; PULSE 80–94; BMI 19.4
[2023-12-16] MEDS: ROBITUSSIN DM 5 ML PO (04:52)
[2023-12-16 05:21] LABS: INR 1.48; PT 18.2 Sec (11.4-14.6)
[2023-12-16 05:33] LABS: Blood Urea Nitrogen 21 mg/dl (9-20); Calcium 8.7 mg/dl (8.4-10.2); Chloride 83 mmol/L (98-107); Estimated Creatinine Clearance 53 ml/min; Glucose 112 mg/dl (70-99); Sodium 126 mmol/L (135-145); eGFR > 60.00
[2023-12-16 05:45] LABS: Carbon Dioxide 35 mmol/L (22-30)
--- NOTE | 2023-12-16 05:46 | W.PN.UPDATE ---
Update Note
Progress Note Update
RN notified CLINICAL CARE COORDINATOR that patient had a fall. Patient seen and evaluated. Patient states he was in the bathroom, felt SOB, and was trying to walk back to the bed, lost balance and fell. Reports he hit left side of the head and left elbow. Patient has a
contussion on left frontal area of the head, and a laceration on Left elbow. Patient currently not on blood thinners, Coumadin is on hold. Patient is AAOx3, neurochecks NIH 0, will do CT of the head, neurochecks for 24 hours. Maintain fall
precautions.
--- NOTE | 2023-12-16 05:59 | PTCARENOTE ---
Patient rang call teran at approx 0515 stating he had to have a bowel movement. overnight, patient ambulating with a rolling walker and standby assist. bed alarm overnight for safety. RN ambulated patient to BR. patient steady, denied any
lightheadedness/dizziness. patient wanted privacy to have a BM. educated patient multiple times to call Rn before standing up. RN showed patient how to pull bathroom cord. RN heard toliet flush and on arrival found patient laying on his left side on
the floor of the bathroom. patient states that he became short of breath, coughing and lost his balance. patient stated he wanted to do things on his own. patient hit L side of his head. x2 RNs assisted patient off the floor and into chair. bp
109/84. HR 80s afib. L head-contusion, raised, approx size of a golf ball. L elbow abrasion-foam pad applied. [facility] COMMUNICATIONS DESIGNER and nursing steel floor pan placing supervisor notified. [facility] COMMUNICATIONS DESIGNER at the bedside. CT head ordered and patient taken down by PCT.
--- NOTE | 2023-12-16 06:22 | PTCARENOTE ---
Patient returned back from head CT. Assisted back to bed. Bed alarm active. Patient educated again to remain in bed, and ring for assistance. Will pass along to day shift RN.
--- NOTE | 2023-12-16 06:51 | W.PN.HOSP.TC ---
Addendum entered and electronically signed by Jonel Garza MD 12/16/23 11:27:
Patient CT scan does not show any changes of fracture or intracranial hemorrhage or hematoma warfarin will continue to be held pursuant to cardiology's opinion still under consideration for possible need for diagnostic right heart catheterization he
will be placed on DVT prophylaxis with Lovenox 40 mg every 12 consideration going forward may be with Sukhjinder and case management will assess pricing for him.
I called patient's son Goran with an update and plans of care in the early part of next week
Original Note:
Today's Communication/Plan
-
Defer Entresto and carvedilol dosing to cardiology continue amiodarone loading
IV furosemide
Obtain urine lites and osmolality and creatinine/consult nephrology
Keep at bedrest/may need to enforce with one-to-one as patient is impulsive
Assessment / Plan
Assessment / Plan
88-year-old male past medical history of atrial fibrillation, HFrEF, persistent atrial fibrillation, presenting for shortness of breath for the past 4 months acutely worse in the past 3 to 4 days.� Shortness of breath worse with exertion when he
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
Patient has been having symptoms of decreased appetite, weight loss of 50 pounds in the past few month as well as abdominal distention and inability to eat as much as before.� He saw a GI doctor and had barium swallow done which was unremarkable.�
Endoscopy was being considered.� Patient also had several laboratory tests which were unremarkable.
Patient has also been having progressive weakness and difficulty walking and initially saw physical therapy who recommended he follow-up with neurology.
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
mixture of axonal degeneration and demyelination with active denervation and chronic nerve degeneration, however no motor neuron disease cannot be ruled out due to active denervation in bilateral L5/S1 nerve root innervated muscles'.� His
neurologist was considering diagnosis of ALS.
No smoking or alcohol use.
# Acute on chronic HFrEF
-Chest x-ray shows cardiomegaly, possible mild pulmonary edema, report pending
-Cardiac BNP of 3000
-Check I's and O's, daily weight
-40 IV Lasix daily
-Continue Coreg/reduced dosing due to hypotension and held yesterday
-Held Entresto
-Noncompliance to diuretic management has been an issue
-Cardiology consulted
Persistent atrial fibrillation
-Cardiology added amiodarone loading /heart rate improved remains hypotensive
- Coumadin/PT/INR today 1.48
-Cardiology is letting it trend down for possible intervention early next week
-Managed by [facility]
With unclear relation to syncope versus weakness from hyponatremia
-Did not seem to be related to hypotension as BP has improved
-Obtain urine lites and urine osmole and urine creatinine
-Obtain nephrology input for treatment of hyponatremia
Underlying neuromuscular disorder
-Daughter requesting LP,� recommend patient follow-up with his neurologist at [place] regarding further testing
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
degeneration, however no motor neuron disease cannot be ruled out due to active denervation in bilateral L5/S1 nerve root innervated muscles'.� His neurologist was considering diagnosis of ALS.
-PT/OT
Lack of appetite/ weight loss
-Metastatic rather extensive GI workup at [facility] which he is going to continue to follow and I believe he is scheduled for a upper endoscopy
-Unclear etiology, could be related to underlying neuromuscular disorder
-Continue to follow-up with GI
Full code
DVT prophylaxis�Coumadin on hold
Cardiac diet
Anticipated Discharge: 24 - 48 hours
Subjective/Interval History
-
Date of Service: December 16, 2023
Had fall please refer to the blood bank credit clerk note for details presently denies any headache visual disturbance conflicting story from the patient whether felt lightheaded while on the toilet or issue with his known lower extremity weakness and neuropathy.
Objective Data
-
Labs:
Laboratory Results
12/16/23
04:01
PT 18.2 H
INR 1.48
Sodium 126 L
Potassium 4.0
Chloride 83 L
Carbon Dioxide 35 H
BUN 21 H
Creatinine 0.8
Glucose 112 H
Calcium 8.7
Vital Signs:
Vital Signs
Temp Pulse Resp BP Pulse Ox
97.8 F 99 24 124/80 91
12/16/23 04:01 12/16/23 04:00 12/16/23 04:01 12/16/23 03:53 12/16/23 04:01
I&O
12/14/23 12/15/23 12/16/23
06:59 06:59 06:59
Intake Total 900 / 900 950 / 950
Output Total 500 / 500 150 / 150 1000 / 1000
Balance 400 / 400 800 / 800 -1000 / -1000
Review of Systems
-
History Source: Patient and Family
Constitutional: Reports No Symptoms
EENT: Reports Other (Bruising left frontal)
Physical Exam
-
General: Well Developed
HEENT: Normocephalic
Respiratory: Clear to Auscultation
Cardiac: Irregular Rhythm and Other (No longer tachycardic BP improved)
Skin: IV Access / Catheter Site
Neuro: Awake
Psych: Calm
Data Reviewed
-
Total Time Spent with Patient (in minutes): 56
CT Scan: Report Reviewed by me (Head CT imaging read pending after fall)
Medical Tests (Nuc Med, Echo etc): Report Reviewed by me
Labs: Labs Reviewed by me (PT INR now down to 1.48/sodium continues to trend down to 126)
[2023-12-16] MEDS: BenGay-Like 1 APPLIC TOPICAL ×2 (08:38→17:40)
[2023-12-16] MEDS: PACERONE 200 MG PO ×3 (08:39→22:56)
[2023-12-16] MEDS: ENTRESTO 24 MG/26 MG 1 TAB PO (08:39)
[2023-12-16] MEDS: COREG 25 MG PO (08:39)
[2023-12-16] MEDS: LASIX 40 MG IV (08:39)
[2023-12-16] MEDS: FLUSH (NSS) 2 FLUSH IV (08:40)
[2023-12-16] MEDS: METAMUCIL, KONSYL PO (08:41)
--- NOTE | 2023-12-16 09:08 | PTCARENOTE ---
Assessed the patient's pulse ox on RA. He would fluctuate between 87 and 90% on RA. I had him do deep breathing exercises. His pulse ox would increase to 91% for a few seconds and then drop to 88% on RA. I placed 1L of oxygen on him and his pulse
gradually increased to 95%.
--- NOTE | 2023-12-16 09:18 | W.PN.CARDCBS ---
Addendum entered and electronically signed by Kevin Kraus MD 12/16/23 09:37:
correction already back on coreg 25 mg po bid
consider restarting entresto 12/17 am
Original Note:
Today's Communication / Plan
-
Continue IV Lasix
Continue to hold Coumadin with possible heart catheterization if continues to remain on oxygen depending on his mental status as well
Start Lovenox in place of Coumadin
Check on cost of Eliquis
Restart Coreg at lower dose of 12.5 mg p.o. twice daily
Continue amiodarone loading for rate control of A-fib
Impression / Plan
-
PCP: Dr. Prakash Schreiber
Cardiology: Dr. Kraus
Impression:
Acute hypoxemic respiratory insufficiency
Acute on chronic HFrEF
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
Permanent Afib with RVR
Chronic warfarin OAC managed by [facility]
h/o moderate MR
EVE 2010: EF 30%, moderate MR with 2 distinct jets
Echo 06/14/23: EF 35-40%, mild conc LVH, mild MR, aortic sclerosis without stenosis
Lexiscan sestamibi stress test 08/07/2023: Normal perfusion, ejection fraction 45% in the setting of rapid A-fib
Echo 12/14/23: Ejection fraction 44%, apical and septal hypokinesis, mild MR, mild AI, moderate TR PA systolic 49 mmHg, pleural effusion
�
Plan:
Entresto and carvedilol on hold due to hypotension which has improved
We will resume carvedilol at a lower dose of 12.5 mg p.o. twice daily which will also help with rate control of A-fib
Eventually resume Entresto if blood pressure tolerates
Volume status is difficult but we will continue IV Lasix with stable renal function and continued decreasing weight
Part of the issue may be poor heart rate control of atrial fibrillation which is improved with amiodarone loading
Might need to consider right and left heart catheterization if continues to remain on oxygen but stress test was okay in July 2023
We will continue to hold Coumadin for now. Will give Lovenox.
Aldactone previously stopped due to hypotension.
-Patient is chronically on warfarin managed by [facility] with an INR goal of 2-3. INR was supratherapeutic at 4.33 on admission 12/12/23 and warfarin was held. Checking into the cost of Eliquis.
HPI: Patient came to [facility] yesterday with increased SOB and is now admitted with acute HF and cardiology has been consulted. Patient says that he started to feel poorly about 6 weeks ago, but he was trying to wait until his scheduled office visit
with Dr. Kraus 12/19/23. Patient says that he has orthopnea, CASTILLO, edema and now resting SOB so he finally came to [facility] last night. Patient is not sure what his dry weight is, but at last office visit 08/23/23 he weighed 139 lbs and today he weighs
135 lbs. Patient says that he has not been eating well. At office visit 08/23/23 it was discovered that patient stopped Lasix on his own due to constipation, but he was agreeable to restart Lasix 20 mg PO daily. Patient is no longer taking Lasix for
unclear reasons, but says that he watches his salt and fluid intake although cannot say what the daily limitations are.
Progress Note - Director University
Subjective
Date of Service: December 16, 2023
No complaints but appears confused
Objective
Labs:
12/15/23 04:14
12/16/23 04:01
Labs
Hgb 12.3 g/dL (13.0-18.0) L 12/15/23 04:14
Hct 37.3 % (39.0-52.0) L 12/15/23 04:14
Plt Count 157 10^3/uL (130-400) 12/15/23 04:14
PT 18.2 Sec (11.4-14.6) H 12/16/23 04:01
INR 1.48 12/16/23 04:01
Sodium 126 mmol/L (135-145) L 12/16/23 04:01
Potassium 4.0 mmol/L (3.5-5.1) 12/16/23 04:01
BUN 21 mg/dl (9-20) H 12/16/23 04:01
Creatinine 0.8 mg/dL (0.7-1.3) 12/16/23 04:01
Glucose 112 mg/dl (70-99) H 12/16/23 04:01
Vital Signs and I&O:
Vital Signs
Temp Pulse Resp BP Pulse Ox
97.4 F 103 20 105/69 99
12/16/23 07:26 12/16/23 09:00 12/16/23 07:26 12/16/23 07:26 12/16/23 07:26
Vital Signs
Temp Pulse Resp BP Pulse Ox
97.4 F 103 20 105/69 99
12/16/23 07:26 12/16/23 09:00 12/16/23 07:26 12/16/23 07:26 12/16/23 07:26
Intake & Output
12/14/23 12/15/23 12/16/23 12/17/23
06:59 06:59 06:59 06:59
Intake Total 900 / 900 950 / 950
Output Total 500 / 500 150 / 150 1000 / 1000
Balance 400 / 400 800 / 800 -1000 / -1000
Physical Exam
Physical Exam
General: Awake but confused
Neck: Supple, no JVD, HJR, carotids +2 B/L, no bruits bilaterally.
Heart: Non displaced PMI, irregular, no murmurs, No S3, S4, no rubs.
Lungs: Poor effort
Extremities: No clubbing, cyanosis or edema bilaterally.
Neuro: Awake but confused
[2023-12-16] MEDS: LOVENOX 40 MG SC ×2 (10:35→22:56)
--- NOTE | 2023-12-16 10:40 | CON.MD ---
Consultation - Medical
-
IMP:
Acute on chronic HFrEF EF 44%, mod TR
Persistent atrial fibrillation
hyponatremia
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
Lack of appetite/ weight loss
Hypotension -improved
PLan:
a/w sob, acute CHF
hyponatremia-worsening despite lasix
pending urine osmo, U na
suspect high ADH state with CHF
TSH normal, check cortisol
maintain FR 40 ounces/.day
may need low dose of samsca
BP now better, check orthostatics
he seem euvolemic on exam with out JVD or edema
cont lasix
d/w nursing
[id number]
[2023-12-16 11:13] LABS: Osmolality Urine 2843 mOsm/kg (300-900)
[2023-12-16 11:20] LABS: Urine Sodium 103 mmol/L (30-90)
--- NOTE | 2023-12-16 14:01 | PTCARENOTE ---
Patient's 1200 neuro checks showed a change in his strength. This morning I scored it as 'Normal' and this afternoon as 'Fair'. He was more awake this morning and now he's sleepy.
[2023-12-16] MEDS: BenGay-Like TOPICAL ×2 (14:06→23:00)
--- NOTE | 2023-12-16 14:31 | PTCARENOTE ---
Orthostatic vital signs were done. Lying he was 104/67 with a HR of 80. Sitting he was 85/62 with a HR of 86. Standing he was 80/61 with a HR of 94. He was drowsy throughout the process but asymptomatic. He had no complaints of lightheadedness or
dizziness.
--- NOTE | 2023-12-16 15:41 | PTCARENOTE ---
I spoke with the patient's son and he is concerned that his dad may have a concussion. He wanted me to relay his concerns to the doctor because his dad has been sleeping all shift, unlike yesterday. I spoke with his son at length about his dad's
condition, labs, and plan of care. Also, I text Dr. Garza with the son's concerns.
--- NOTE | 2023-12-16 16:15 | PTCARENOTE ---
Neuro check strength in all 4 limbs has improved to 'Good'. The patient is still sleepy/lethargic. He does open his eyes and follow commands at my request.
[2023-12-16 16:26] LABS: Sodium 128 mmol/L (135-145)
[2023-12-16 17:05] LABS: Osmolality Urine 328 mOsm/kg (300-900)
--- NOTE | 2023-12-16 17:34 | PTCARENOTE ---
Moved the patient to room 2243 for safety purposes.
--- NOTE | 2023-12-16 17:45 | PTCARENOTE ---
I saw the patient fidgeting in his bed. I asked him if he needed anything. He asked for a warm blanket. I let him know that he was due for his amiodarone. He then asked me for water. He swallowed the pill without difficulty and then asked me to
reposition his bed.
[2023-12-16 20:04] LABS: Glucose - Point of Care 111 mg/dl (70-99)
[2023-12-16] MEDS: ENTRESTO 24 MG/26 MG PO (20:51)
[2023-12-16] MEDS: COREG PO (20:51)
[2023-12-16] MEDS: LIPITOR 40 MG PO (22:56)
--- NOTE | 2023-12-16 23:51 | PTCARENOTE ---
Received pt at handoff. On assessment, pt very drowsy and confused. Pt able to answer name and but when asked for his location pt continued to repeat his . Extremity strength rated 'fair.' BP 92/61. Ignacio Barnes made aware of mental status
change. 30 minutes later, pt re-assessed. Pt mental status change. Pt now AOx3. Able to obey simple commands, have an oriented conversation, open eyes spontaneously, extremity strength normal. Asking for warm blanket. Pt able to recall location and
what is going on. Educated pt on use of call teran and not to get up unless w/ RN assist. Pt verbalizes understanding. Bed alarm activated. 1 hour later, pt rings teran to use bathroom. Pt ambulatory w/ rolling walker and x1 assist to bedside commode.
No complaints of dizziness/lightheadedness. Pt able to swallow oral meds. Pt asking for 'promise ronnie and something light to eat like ice cream.' Reports not being too hungry today. Pt now resting in bed watching a movie; call teran w/in reach.
[2023-12-17] VITALS (17 sets, daily range): BP systolic 74–152; BP diastolic 48–124; PULSE 88–103; O2SAT 92; BMI 19.1
[2023-12-17 04:42] LABS: Hematocrit 45.9 % (39.0-52.0); Hemoglobin 15.6 g/dL (13.0-18.0); Mean Corpuscular Volume 94.3 fL (80.0-94.0); Platelet Count 169 10^3/uL (130-400); Red Blood Cell Count 4.87 10^6/uL (4.70-6.10); Red Cell Dist. Width 12.4 % (11.5-14.5); White Blood Cell Count 5.4 10^3/uL (4.8-10.8)
[2023-12-17 05:07] LABS: INR 1.26; PT 16.1 Sec (11.4-14.6)
[2023-12-17 05:08] LABS: Blood Urea Nitrogen 22 mg/dl (9-20); Calcium 8.8 mg/dl (8.4-10.2); Chloride 80 mmol/L (98-107); Estimated Creatinine Clearance 53 ml/min; Glucose 100 mg/dl (70-99); Potassium 3.6 mmol/L (3.5-5.1); Sodium 128 mmol/L (135-145); eGFR > 60.00
[2023-12-17 05:20] LABS: Carbon Dioxide 44 mmol/L (22-30)
--- NOTE | 2023-12-17 07:23 | PTCARENOTE ---
The patient's mentation is back to baseline. I had a long conversation with him about yesterday. He does remember falling however, he does not remember his or son visiting him.
Orthostatic vital signs were done this am. Lying he was 101/59 with a HR of 88. Sitting he was 74/51 with a HR of 96. Standing he was 84/69 with a HR of 103. He was asymptomatic. He denied any dizziness or lightheadedness.
--- NOTE | 2023-12-17 07:24 | W.PN.HOSP.TC ---
Today's Communication/Plan
-
Significantly improved interactions this morning as compared to yesterday afternoon
No signs of concussion or neurologic deficits
BP remains soft and cardiology adjusting carvedilol and Entresto continue with IV furosemide
Continued hyponatremia Nephrology assessing for possible tolvaptan
PT OT/continued fall risk may impact on anticoagulant decisions
For diagnostic cath early next week continue Lovenox for DVT prophylaxis holding warfarin
Assessment / Plan
Assessment / Plan
88-year-old male past medical history of atrial fibrillation, HFrEF, persistent atrial fibrillation, presenting for shortness of breath for the past 4 months acutely worse in the past 3 to 4 days.� Shortness of breath worse with exertion when he
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
Patient has been having symptoms of decreased appetite, weight loss of 50 pounds in the past few month as well as abdominal distention and inability to eat as much as before.� He saw a GI doctor and had barium swallow done which was unremarkable.�
Endoscopy was being considered.� Patient also had several laboratory tests which were unremarkable.
Patient has also been having progressive weakness and difficulty walking and initially saw physical therapy who recommended he follow-up with neurology.
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
mixture of axonal degeneration and demyelination with active denervation and chronic nerve degeneration, however no motor neuron disease cannot be ruled out due to active denervation in bilateral L5/S1 nerve root innervated muscles'.� His
neurologist was considering diagnosis of ALS.
No smoking or alcohol use.
# Acute on chronic HFrEF
-Chest x-ray shows cardiomegaly, possible mild pulmonary edema, report pending
-Cardiac BNP of 3000
-Check I's and O's, daily weight
-40 IV Lasix daily
-Continue Coreg/reduced dosing due to hypotension
-Held Entresto
-Noncompliance to diuretic management has been an issue
-Cardiology consulted
Persistent atrial fibrillation
-Cardiology added amiodarone loading /heart rate improved remains hypotensive
- Coumadin/PT/INR today 1.48
-Cardiology is letting it trend down for possible intervention early next week
-Managed by [facility]
Acute hyponatremia
With unclear relation to syncope versus weakness from hyponatremia
-Did not seem to be related to hypotension as BP has improved
-Fraction excretion of sodium 2.5/renal component
-Obtain nephrology input for treatment of hyponatremia/consideration for Samsca
Fall with head trauma
-Bruise in left frontotemporal/
-No hemorrhagic changes on CT
-Continue to monitor neurochecks but no signs of concussive mentation
-Mental status changes of the evening may have been in relation to combination of lack of sleep and hyponatremia
Underlying neuromuscular disorder
-Daughter requesting LP,� recommend patient follow-up with his neurologist at [place] regarding further testing
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
degeneration, however no motor neuron disease cannot be ruled out due to active denervation in bilateral L5/S1 nerve root innervated muscles'.� His neurologist was considering diagnosis of ALS.
-PT/OT
Lack of appetite/ weight loss
-Metastatic rather extensive GI workup at [facility] which he is going to continue to follow and I believe he is scheduled for a upper endoscopy
-Unclear etiology, could be related to underlying neuromuscular disorder
-Continue to follow-up with GI
Full code
DVT prophylaxis�Coumadin on hold
Cardiac diet
Anticipated Discharge: 24 - 48 hours
Subjective/Interval History
-
Date of Service: December 17, 2023
Patient last night in the evening was concern by family members to be increasingly drowsy this quickly waned after that they left and only lasted about an hour and he was much more interactive thereafter and got a good night sleep and is at his
baseline this morning does not refer any headache his appetite is also improved
Objective Data
-
Labs:
Laboratory Results
12/17/23
04:23
WBC 5.4
Hgb 15.6 D
Hct 45.9
Plt Count 169
PT 16.1 H
INR 1.26
Sodium 128 L
Potassium 3.6
Chloride 80 L
Carbon Dioxide 44 H
BUN 22 H
Creatinine 0.8
Glucose 100 H
Calcium 8.8
Vital Signs:
Vital Signs
Temp Pulse Resp BP Pulse Ox
97.7 F 99 22 84/69 95
12/17/23 06:57 12/17/23 07:01 12/17/23 06:57 12/17/23 07:01 12/17/23 06:57
I&O
12/16/23 12/17/23 12/18/23
06:59 06:59 06:59
Intake Total 480 / 480
Output Total 1000 / 1000 1375 / 1375
Balance -1000 / -1000 -895 / -895
Review of Systems
-
History Source: Patient and Family
Constitutional: Reports Fatigue and Weakness
Respiratory: Reports No Symptoms
Cardiac: Reports No Symptoms
Abdomen/GI: Reports No Symptoms
Skin: Reports No Symptoms
Physical Exam
-
General: Comfortable
HEENT: Normocephalic
Respiratory: Clear to Auscultation
Cardiac: Irregular Rhythm
GI: Soft and Nontender
Neuro: Awake, Alert, Oriented, AO x 3, No Motor Deficits, Nonfocal/Grossly Intact and No Sensory Deficits
Psych: Calm
Data Reviewed
-
Total Time Spent with Patient (in minutes): 45
CT Scan: Discussed with Physician (Head CT results reviewed)
Labs: Labs Reviewed by me (Sodium remains depressed at 128 chloride only 80 bicarb 44 and also are trending up/fractional excretion of sodium was measured at 2.5)
[2023-12-17] MEDS: METAMUCIL, KONSYL 1 PACKET PO (07:51)
[2023-12-17] MEDS: FLUSH (NSS) 2 FLUSH IV (07:52)
[2023-12-17] MEDS: PACERONE 200 MG PO ×3 (07:52→22:08)
[2023-12-17] MEDS: LASIX 40 MG IV (07:52)
[2023-12-17] MEDS: BenGay-Like TOPICAL ×2 (07:53→14:45)
[2023-12-17] MEDS: COREG PO (09:26)
[2023-12-17] MEDS: ENTRESTO 24 MG/26 MG PO (09:27)
--- NOTE | 2023-12-17 09:27 | PTCARENOTE ---
Rehan and Mel held, BP 87/50, HR 107.
--- NOTE | 2023-12-17 10:06 | W.PN.CARDCBS ---
Today's Communication / Plan
-
DC IV Lasix with worsening hyponatremia
Try to wean off of oxygen
Consider right and left heart cath if remains on oxygen but might consider empiric treatment as ejection fraction has improved
Continue amiodarone loading for A-fib rate control which is improved
Hold Lovenox in a.m.
Impression / Plan
-
PCP: Dr. Prakash Schreiber
Cardiology: Dr. Kraus
Impression:
Acute hypoxemic respiratory insufficiency
Acute on chronic HFrEF
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
Permanent Afib with RVR
Chronic warfarin OAC managed by [facility]
h/o moderate MR
EVE 2010: EF 30%, moderate MR with 2 distinct jets
Echo 06/14/23: EF 35-40%, mild conc LVH, mild MR, aortic sclerosis without stenosis
Lexiscan sestamibi stress test 08/07/2023: Normal perfusion, ejection fraction 45% in the setting of rapid A-fib
Echo 12/14/23: Ejection fraction 44%, apical and septal hypokinesis, mild MR, mild AI, moderate TR PA systolic 49 mmHg, pleural effusion
�
Plan:
Remains hypotensive at time
We will hold Entresto and continue carvedilol
Eventually resume Entresto if blood pressure tolerates
Aldactone previously stopped due to hypotension.
He remains on oxygen.
Volume status is difficult but given worsening hyponatremia will DC IV Lasix and follow for now
I was considering right and left heart catheterization but his ejection fraction was improved compared to prior echo
Might consider right and left heart catheterization if becomes difficult to wean off of oxygen
Hold Lovenox in a.m.
Continue amiodarone loading for rate control of A-fib which has improved
on Lovenox currently with Coumadin on hold.
Plan is to change to Eliquis on discharge as it is $47 a month
Discussed with nursing
HPI: Patient came to [facility] yesterday with increased SOB and is now admitted with acute HF and cardiology has been consulted. Patient says that he started to feel poorly about 6 weeks ago, but he was trying to wait until his scheduled office visit
with Dr. Kraus 12/19/23. Patient says that he has orthopnea, CASTILLO, edema and now resting SOB so he finally came to [facility] last night. Patient is not sure what his dry weight is, but at last office visit 08/23/23 he weighed 139 lbs and today he weighs
135 lbs. Patient says that he has not been eating well. At office visit 08/23/23 it was discovered that patient stopped Lasix on his own due to constipation, but he was agreeable to restart Lasix 20 mg PO daily. Patient is no longer taking Lasix for
unclear reasons, but says that he watches his salt and fluid intake although cannot say what the daily limitations are.
Progress Note - Barometers Calibrator
Subjective
Date of Service: December 17, 2023
No complaints
Objective
Labs:
12/17/23 04:23
12/17/23 04:23
Labs
Hgb 15.6 g/dL (13.0-18.0) D 12/17/23 04:23
Hct 45.9 % (39.0-52.0) 12/17/23 04:23
Plt Count 169 10^3/uL (130-400) 12/17/23 04:23
PT 16.1 Sec (11.4-14.6) H 12/17/23 04:23
INR 1.26 12/17/23 04:23
Sodium 128 mmol/L (135-145) L 12/17/23 04:23
Potassium 3.6 mmol/L (3.5-5.1) 12/17/23 04:23
BUN 22 mg/dl (9-20) H 12/17/23 04:23
Creatinine 0.8 mg/dL (0.7-1.3) 12/17/23 04:23
Glucose 100 mg/dl (70-99) H 12/17/23 04:23
Vital Signs and I&O:
Vital Signs
Temp Pulse Resp BP Pulse Ox
97.7 F 107 22 87/50 95
12/17/23 06:57 12/17/23 09:27 12/17/23 06:57 12/17/23 09:27 12/17/23 07:55
Vital Signs
Temp Pulse Resp BP Pulse Ox
97.7 F 107 22 87/50 95
12/17/23 06:57 12/17/23 09:27 12/17/23 06:57 12/17/23 09:27 12/17/23 07:55
Intake & Output
12/15/23 12/16/23 12/17/23 12/18/23
06:59 06:59 06:59 06:59
Intake Total 950 / 950 480 / 480
Output Total 150 / 150 1000 / 1000 1375 / 1375 275 / 275
Balance 800 / 800 -1000 / -1000 -895 / -895 -275 / -275
Physical Exam
Physical Exam
General: Well developed, well nourished in NAD.
Neck: Supple, no JVD, HJR, carotids +2 B/L, no bruits bilaterally.
Heart: Non displaced PMI, irregular, no murmurs, No S3, S4, no rubs.
Lungs: Scattered rhonchi
Extremities: No clubbing, cyanosis or edema bilaterally.
Neuro: Grossly nonfocal, awake, alert and oriented x3.
[2023-12-17] MEDS: LOVENOX 40 MG SC ×2 (10:37→22:08)
[2023-12-17] MEDS: BenGay-Like 1 APPLIC TOPICAL ×3 (10:38→22:07)
[2023-12-17] MEDS: MAALOX 30 ML PO (12:26)
--- NOTE | 2023-12-17 12:29 | PTCARENOTE ---
The patient complained of indigestion after breakfast and asked for Maalox. Notified Dr. Garza of the patient's request. Maalox ordered and given.
--- NOTE | 2023-12-17 13:50 | W.PN.NEPH.PH ---
Today's Communication / Plan
-
check cortisol
samsca if Bp stable
Assessment/Plan
-
IMP:
Acute on chronic HFrEF EF 44%, mod TR
Persistent atrial fibrillation
hyponatremia
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
Lack of appetite/ weight loss
Hypotension -improved
Metabolic alkalosis
PLan:
a/w sob, acute CHF
hyponatremia-worsened despite lasix
high urine osmo 328, U na high wiht lasix
high ADH state with CHF, hypotension
TSH normal, check cortisol
maintain FR 40 ounces/.day
sodium slightly better better
may need low dose of samsca if BP stabilized
reports baseline BP 80-100. orthostatic this am but no sympt
met alkalosis, holding lasix , consider diamox if persists
he seem euvolemic
d/w nursing and family
-
-
Date of Service: December 17, 2023
CC / HPI / ROS
-
Chief Complaint:
hyponatremia
History of Present Illness:
sodium better tat 128
orthostatic this am but no symp
no fever, biacrb 44
Review of Systems:
no cp or sob
no dizziness
Labs
-
Labs:
WBC 5.4 10^3/uL (4.8-10.8) 12/17/23 04:23
RBC 4.87 10^6/uL (4.70-6.10) 12/17/23 04:23
Hgb 15.6 g/dL (13.0-18.0) D 12/17/23 04:23
Hct 45.9 % (39.0-52.0) 12/17/23 04:23
Plt Count 169 10^3/uL (130-400) 12/17/23 04:23
Sodium 128 mmol/L (135-145) L 12/17/23 04:23
Potassium 3.6 mmol/L (3.5-5.1) 12/17/23 04:23
Chloride 80 mmol/L (98-107) L 12/17/23 04:23
Carbon Dioxide 44 mmol/L (22-30) H 12/17/23 04:23
BUN 22 mg/dl (9-20) H 12/17/23 04:23
Creatinine 0.8 mg/dL (0.7-1.3) 12/17/23 04:23
eGFR > 60.00 12/17/23 04:23
Glucose 100 mg/dl (70-99) H 12/17/23 04:23
Calcium 8.8 mg/dl (8.4-10.2) 12/17/23 04:23
Tjy-T-Txqxdccatny Pept 3010 pg/ml 12/12/23 18:29
Albumin 3.7 g/dl (3.5-5.0) 12/13/23 04:28
Physical Exam
-
Vital Signs:
Vital Signs
Temp Pulse Resp BP Pulse Ox
98.2 F 96 20 101/60 88
12/17/23 12:11 12/17/23 12:12 12/17/23 12:11 12/17/23 12:12 12/17/23 12:12
Cardiovascular:: Regular rate and rhythm
Lung Excursion:: Normal
Abdomen:: Nontender and Soft
Extremity Edema:: None: Bilateral:
Deleon Catheter: No
[2023-12-17 15:27] LABS: Cortisol, Random 22.9 ug/dl
[2023-12-17 15:33] LABS: Sodium 126 mmol/L (135-145)
[2023-12-17] MEDS: SAMSCA 7.5 MG PO (17:01)
[2023-12-17] MEDS: FLUSH (NSS) 1 FLUSH IV (20:01)
[2023-12-17] MEDS: COREG 25 MG PO (20:01)
[2023-12-17] MEDS: MELATONIN 3 MG PO (22:08)
[2023-12-17] MEDS: LIPITOR 40 MG PO (22:08)
--- NOTE | 2023-12-17 23:27 | PTCARENOTE ---
Received patient at change of shift this PM. AAOx3. VSS. He is A-Fib on the monitor. HR in the 110s. INT patent. He denies chest pain or discomfort. He understands that he is to use his call teran to ring and ask for assistance with ambulation and
bathroom needs. He has bed and chair alarms on for safety. Plan of care discussed. He is receptive to teaching and seems motivated. We discussed his medications. He understands that the plan is to manage his hyponatremia and to try and keep him off
of his O2. He denies pain and appears comfortable in bed at this time. Will continue to monitor.
[2023-12-18] VITALS (7 sets, daily range): BP systolic 94–139; BP diastolic 66–98; BMI 18.5
[2023-12-18 05:42] LABS: Blood Urea Nitrogen 25 mg/dl (9-20); Calcium 8.9 mg/dl (8.4-10.2); Chloride 77 mmol/L (98-107); Estimated Creatinine Clearance 50 ml/min; Glucose 100 mg/dl (70-99); Potassium 3.7 mmol/L (3.5-5.1); Sodium 127 mmol/L (135-145); eGFR > 60.00
[2023-12-18 05:52] LABS: Carbon Dioxide 42 mmol/L (22-30)
[2023-12-18] MEDS: COREG 25 MG PO ×2 (09:01→20:03)
[2023-12-18] MEDS: BenGay-Like TOPICAL ×5 (09:01→22:15)
[2023-12-18] MEDS: METAMUCIL, KONSYL 1 PACKET PO (09:01)
[2023-12-18] MEDS: PACERONE 200 MG PO ×3 (09:02→20:03)
[2023-12-18] MEDS: FLUSH (NSS) 1 FLUSH IV ×2 (09:02→20:04)
--- NOTE | 2023-12-18 09:42 | PTCARENOTE ---
Patient received this morning resting in bed, remains in AF. Offers no complaints of pain or shortness of breath, however when repositioned and bed was placed flat, patient is orthopneic. Call teran within reach, will continue to monitor.
--- NOTE | 2023-12-18 11:31 | W.PN.CARDCBS ---
Addendum entered and electronically signed by Kevin Kraus MD 12/18/23 13:07:
I saw and examined the patient.
The YEAST DISTILLER or PA's note was reviewed and I agree with the note.
Comment: General: Well developed, well nourished in NAD.
Neck: Supple, no JVD, HJR, carotids +2 B/L, no bruits bilaterally.
Heart: Non displaced PMI, irregular, no murmurs, No S3, S4, no rubs.
Lungs: Scattered rhonchi
Extremities: No clubbing, cyanosis or edema bilaterally.
Neuro: Grossly nonfocal, awake, alert and oriented x3.
He is significantly improved. He is off of oxygen. Will try to restart Entresto. Will start Eliquis as he will be changing from Coumadin as Eliquis was affordable. Stable cardiology status for discharge but nephrology may wish to follow sodium
further
Original Note:
Today's Communication / Plan
-
Restart Entresto tonight
Weight is down 8 lbs, he received Samsca yesterday and sodium improved to 127 today
Start Eliquis tonight
Impression / Plan
-
PCP: Dr. Prakash Schreiber
Cardiology: Dr. Kraus
Impression:
Acute hypoxemic respiratory insufficiency
Acute on chronic HFrEF
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
Permanent Afib with RVR
Chronic warfarin OAC managed by [facility]
h/o moderate MR
Hyponatremia
EVE 2010: EF 30%, moderate MR with 2 distinct jets
Echo 06/14/23: EF 35-40%, mild conc LVH, mild MR, aortic sclerosis without stenosis
Lexiscan sestamibi stress test 08/07/2023: Normal perfusion, ejection fraction 45% in the setting of rapid A-fib
Echo 12/14/23: Ejection fraction 44%, apical and septal hypokinesis, mild MR, mild AI, moderate TR PA systolic 49 mmHg, pleural effusion
�
Plan:
-Patient with known permanent Afib, but HRs difficult to control earlier this admission. Patient was started on amiodarone 200 mg TID 12/14/23 and has received a 2.4 gram load as of 12/18/23 AM. HR control has improved and will continue with
amiodarone loading
-Patient was previously on warfarin managed by [facility], but warfarin held for possible procedure. No procedures planned at this point so will resume OAC in the form of Eliquis. Appreciate the help of CM in determining the cost of Eliquis at $47/month of
$94/3 month supply and patient is agreeable to the cost. Will update [facility] that patient is switching to Eliquis.
-Weight is down 8 lbs this admission. Nephrology is following as well due to hyponatremia and patient is s/p Samsca 7.5 mg x1 12/17/23. Sodium is 127 on 12/18/23
-Dry weight not clear and will need to establish a new dry weight at time of discharge.
-Oxygenation has improved and patient is now stable on RA
-BP has improved and he is receiving his usual dose of Coreg 25 mg BID most of the time. His outpatient dose of Entresto 24/26 mg BID has been on hold since 12/16/23 due to hypotension, but will restart 12/18/23 PM.
-Aldactone previously stopped due to hypotension.
HPI: Patient came to [facility] yesterday with increased SOB and is now admitted with acute HF and cardiology has been consulted. Patient says that he started to feel poorly about 6 weeks ago, but he was trying to wait until his scheduled office visit
with Dr. Kraus 12/19/23. Patient says that he has orthopnea, CASTILLO, edema and now resting SOB so he finally came to [facility] last night. Patient is not sure what his dry weight is, but at last office visit 08/23/23 he weighed 139 lbs and today he weighs
135 lbs. Patient says that he has not been eating well. At office visit 08/23/23 it was discovered that patient stopped Lasix on his own due to constipation, but he was agreeable to restart Lasix 20 mg PO daily. Patient is no longer taking Lasix for
unclear reasons, but says that he watches his salt and fluid intake although cannot say what the daily limitations are.
Progress Note - Laundry Machine Tender
Subjective
Date of Service: December 18, 2023
Overall less SOB
Objective
Labs:
12/17/23 04:23
12/18/23 04:46
Labs
Hgb 15.6 g/dL (13.0-18.0) D 12/17/23 04:23
Hct 45.9 % (39.0-52.0) 12/17/23 04:23
Plt Count 169 10^3/uL (130-400) 12/17/23 04:23
PT 16.1 Sec (11.4-14.6) H 12/17/23 04:23
INR 1.26 12/17/23 04:23
Sodium 127 mmol/L (135-145) L 12/18/23 04:46
Potassium 3.7 mmol/L (3.5-5.1) 12/18/23 04:46
BUN 25 mg/dl (9-20) H 12/18/23 04:46
Creatinine 0.8 mg/dL (0.7-1.3) 12/18/23 04:46
Glucose 100 mg/dl (70-99) H 12/18/23 04:46
Vital Signs and I&O:
Vital Signs
Temp Pulse Resp BP Pulse Ox
97.6 F 99 20 126/88 92
12/18/23 08:04 12/18/23 09:01 12/18/23 08:04 12/18/23 09:01 12/18/23 11:10
Vital Signs
Temp Pulse Resp BP Pulse Ox
97.6 F 99 20 126/88 92
12/18/23 08:04 12/18/23 09:01 12/18/23 08:04 12/18/23 09:01 12/18/23 11:10
Intake & Output
12/16/23 12/17/23 12/18/23 12/19/23
06:59 06:59 06:59 06:59
Intake Total 480 / 480 240 / 240 170 / 170
Output Total 1000 / 1000 1375 / 1375 1200 / 1200
Balance -1000 / -1000 -895 / -895 -960 / -960 170 / 170
Physical Exam
Physical Exam
GEN: NAD. AAO x3
HEENT: EOMI, MMM
LUNGS: CTA B/L without wheeze or rales
CV: Irreg irreg, S1/S2, no murmur
ABD: soft, BS+, NT, ND
EXT: Trace B/L LE edema. No clubbing, cyanosis or lesions B/L
NEURO: Gross non-focal
SKIN: Warm, dry and pink. No rash
--- NOTE | 2023-12-18 13:17 | CM ---
Chart reviewed. Patient is independent of ADL, lives with his and son in a [address], ambulates with a SPC and a rolling walker, patient is not current with VN. Patient is interested in VN. Referral placed to [facility]. Plan is for the patient to
return [facility] with [facility]. CM to follow
--- NOTE | 2023-12-18 13:51 | W.PN.NEPH.PH ---
Today's Communication / Plan
-
samsca
Assessment/Plan
-
IMP:
Acute on chronic HFrEF EF 44%, mod TR
Persistent atrial fibrillation
hyponatremia
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
Lack of appetite/ weight loss
Hypotension -improved
Metabolic alkalosis
PLan:
-back on entresto
-no lasix still
-he appears to be slightly volume depleted to me, but will try to avoid NaCl
-samsca today
-with look into Urea
-
-
Date of Service: December 18, 2023
CC / HPI / ROS
-
Chief Complaint:
hyponatremia
History of Present Illness:
Na up to 127 with samsca
orthostatic this am but no symptoms
alkalosis persists 42
Review of Systems:
no cp or sob
no dizziness
Labs
-
Labs:
WBC 5.4 10^3/uL (4.8-10.8) 12/17/23 04:23
RBC 4.87 10^6/uL (4.70-6.10) 12/17/23 04:23
Hgb 15.6 g/dL (13.0-18.0) D 12/17/23 04:23
Hct 45.9 % (39.0-52.0) 12/17/23 04:23
Plt Count 169 10^3/uL (130-400) 12/17/23 04:23
Sodium 127 mmol/L (135-145) L 12/18/23 04:46
Potassium 3.7 mmol/L (3.5-5.1) 12/18/23 04:46
Chloride 77 mmol/L (98-107) L 12/18/23 04:46
Carbon Dioxide 42 mmol/L (22-30) H 12/18/23 04:46
BUN 25 mg/dl (9-20) H 12/18/23 04:46
Creatinine 0.8 mg/dL (0.7-1.3) 12/18/23 04:46
eGFR > 60.00 12/18/23 04:46
Glucose 100 mg/dl (70-99) H 12/18/23 04:46
Calcium 8.9 mg/dl (8.4-10.2) 12/18/23 04:46
Vjl-H-Maipneaxvaq Pept 3010 pg/ml 12/12/23 18:29
Albumin 3.7 g/dl (3.5-5.0) 12/13/23 04:28
Physical Exam
-
Vital Signs:
Vital Signs
Temp Pulse Resp BP Pulse Ox
97.5 F 89 20 94/66 92
12/18/23 12:20 12/18/23 12:20 12/18/23 12:20 12/18/23 12:20 12/18/23 12:20
Cardiovascular:: Regular rate and rhythm
Respiratory:: Bilateral: Coarse
Lung Excursion:: Normal
Abdomen:: Nontender and Soft
Bowel Sounds:: Normal
Extremity Edema:: None: Bilateral:
[2023-12-18] MEDS: SAMSCA 15 MG PO (14:31)
[2023-12-18] MEDS: TYLENOL 650 MG PO (15:30)
--- NOTE | 2023-12-18 15:32 | PTCARENOTE ---
patient c/o lower back pain Tylenol po given as ordered.
--- NOTE | 2023-12-18 16:08 | W.PN.HOSP.TC ---
Today's Communication/Plan
-
Samsca today
follow BMP
order VN
Assessment / Plan
Assessment / Plan
88-year-old male past medical history of atrial fibrillation, HFrEF, persistent atrial fibrillation, presenting for shortness of breath for the past 4 months acutely worse in the past 3 to 4 days.� Shortness of breath worse with exertion when he
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
Patient has been having symptoms of decreased appetite, weight loss of 50 pounds in the past few month as well as abdominal distention and inability to eat as much as before.� He saw a GI doctor and had barium swallow done which was unremarkable.�
Endoscopy was being considered.� Patient also had several laboratory tests which were unremarkable.
Patient has also been having progressive weakness and difficulty walking and initially saw physical therapy who recommended he follow-up with neurology.
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
mixture of axonal degeneration and demyelination with active denervation and chronic nerve degeneration, however no motor neuron disease cannot be ruled out due to active denervation in bilateral L5/S1 nerve root innervated muscles'.�His neurologist
was considering diagnosis of ALS.
No smoking or alcohol use.
Assessment:
Acute hypoxic respiratory insufficiency
- resolved
Acute on chronic HFrEF
- Chest x-ray shows cardiomegaly, possible mild pulmonary edema
- Cardiac BNP of 3000
- Check I's and O's, daily weight
- IV Lasix stopped for hyponatremia
- continue Coreg/Entresto
- appreciate DCA Cards
Persistent atrial fibrillation
- continue BB
- continue Amiodarone load
- switched to Eliquis from Coumadin
Acute hyponatremia
- Nephrology following
- IV Lasix held
- continue Samsca
Fall with head trauma
- Bruise in left frontotemporal
- No hemorrhagic changes on CT
- continue to monitor neuro-checks but no signs of concussive mentation
- Mental status changes of the 27th evening may have been in relation to combination of lack of sleep and hyponatremia
- PT/OT - VN
Underlying neuromuscular disorder
- daughter requesting LP,�recommend patient follow-up with his neurologist at [facility] regarding further testing
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
degeneration, however no motor neuron disease cannot be ruled out due to active denervation in bilateral L5/S1 nerve root innervated muscles'.�His neurologist was considering diagnosis of ALS.
- PT/OT - VN
Lack of appetite/ weight loss
- Metastatic rather extensive GI workup at [facility] which he is going to continue to follow and I believe he is scheduled for a upper endoscopy
- Unclear etiology, could be related to underlying neuromuscular disorder
- Continue to follow-up with GI
DVT ppx: Eliquis
Code: Full
Anticipated Discharge: Within 24 hours
Subjective/Interval History
-
Date of Service: December 18, 2023
denies any new complaints
Objective Data
-
Labs:
Laboratory Results
12/18/23
04:46
Sodium 127 L
Potassium 3.7
Chloride 77 L
Carbon Dioxide 42 H
BUN 25 H
Creatinine 0.8
Glucose 100 H
Calcium 8.9
Vital Signs:
Vital Signs
Temp Pulse Resp BP Pulse Ox
97.5 F 90 20 139/90 92
12/18/23 12:20 12/18/23 15:31 12/18/23 12:20 12/18/23 15:31 12/18/23 12:20
I&O
12/17/23 12/18/23 12/19/23
06:59 06:59 06:59
Intake Total 480 / 480 240 / 240 170 / 170
Output Total 1375 / 1375 1200 / 1200
Balance -895 / -895 -960 / -960 170 / 170
Physical Exam
-
General: No Apparent Distress
HEENT: Normocephalic and Atraumatic
Respiratory: Negative Wheezes or Rales
Cardiac: Regular Rhythm and S1/S2
GI: Soft and Nontender
Genito-urinary: No Costovertebral Tender
Musculoskeletal: No Edema
Neuro: AO x 3
Hematologic / Lymphatic: No Lymphadenopathy
Psych: Calm
Data Reviewed
-
Total Time Spent with Patient (in minutes): 45
Labs: Labs Reviewed by me
[2023-12-18] MEDS: ELIQUIS 5 MG PO (20:03)
[2023-12-18] MEDS: MELATONIN 3 MG PO (22:15)
[2023-12-18] MEDS: ENTRESTO 24 MG/26 MG 1 TAB PO (22:15)
[2023-12-18] MEDS: LIPITOR 40 MG PO (22:15)
[2023-12-19] VITALS (15 sets, daily range): BP systolic 83–136; BP diastolic 62–92; PULSE 76–88; O2SAT 96; BMI 18.4
--- NOTE | 2023-12-19 00:11 | PTCARENOTE ---
Received patient at change of shift this PM. AAOx3. VSS. He is A-Fib on the monitor. HR in the 80s-90s. INT patent. He denies chest pain or discomfort. Plan of care discussed. He is receptive to teaching and motivated. We discussed his medications.
He has no further questions about these. He is eager to be discharged and understands that he may need to stay longer until he is no longer hyponatremic. He denies pain and appears comfortable in bed at this time. Will continue to monitor.
[2023-12-19 03:59] LABS: Blood Urea Nitrogen 22 mg/dl (9-20); Calcium 8.9 mg/dl (8.4-10.2); Chloride 78 mmol/L (98-107); Estimated Creatinine Clearance 50 ml/min; Glucose 112 mg/dl (70-99); Potassium 3.4 mmol/L (3.5-5.1); Sodium 127 mmol/L (135-145); eGFR > 60.00
[2023-12-19 04:10] LABS: Carbon Dioxide 42 mmol/L (22-30)
[2023-12-19] MEDS: TYLENOL 650 MG PO ×2 (04:24→23:06)
--- NOTE | 2023-12-19 08:15 | PN.CDI ---
CDI
- -
CDI:
Physician Documentation Request
Admit Date: 12/12/23 21:06
Dear Doctor Saniya,
Patient admitted with acute on chronic systolic CHF.
12/15 Nutrition note, 'During visit RD able to observe appearance of some protrusion of clavicle, fat/muscle loss on arm/hand, some depression at temples. Due to weight loss and intakes <75% estimated energy intakes for > 1 month with observations as
noted, pt meeting criteria for moderate protein/calorie malnutrition (ASPEN/AND guidelines, chronic illness). RD to continue to follow and encourage intakes per level of care, with follow-up for education when appropriate.
Please provide in your progress note the diagnosis associated with the above findings:
Moderate protein calorie malnutrition
Other (please specify)
Unable to determine
[place] Criteria (ACP Hospitalist 2017)
2 or more criteria must be present for either
non severe or severe malnutrition
Note that the criteria differs related to the
presence of an acute or chronic illness
Chronic Illness
Energy Intake Non Severe: <75% for >1 month
Severe: <75% for >1 month
Weight Loss Non Severe: 5% over 1 month
7.5% over 3 months
10% over 6 months
20% over 1 year
Severe: >5% over 1 month
>7.5% over 3 months
>10% over 6 months
>20% over 1 year
Body Fat Non Severe: Mild Loss
Severe: Severe Loss
Muscle Mass Non Severe: Mild Loss
Severe: Severe Loss
Fluid Accumulation Non Severe: Mild Accumulation
Severe: Moderate to severe
accumulation
Reduced Rotor Winder Strength Non Severe: N/A
Severe: Measurably reduced
Use of terms such as suspected, likely, concern for, or probable (associated with a specific diagnosis that is being evaluated, monitored, or treated as if it exists) are acceptable and can be coded in the inpatient setting, when documented at the
time of discharge.
Thank you,
Nuzhat HODGE,RN,CCDS
CDI Specialist
Available via tiger text
Please use your independent medical judgment in providing your response.
--- NOTE | 2023-12-19 08:24 | PN.CDI ---
CDI
- -
CDI:
Physician Documentation Request
Admit Date: 12/12/23 21:06
Dear Doctor Saniya,
Patient admitted with acute on chronic systolic CHF.
12/18 Nursing skin assessment, 'Stage 2 gluteal cleft pressure injury.'
Physician documentation of the type and location of wounds is required for compliant documentation. Based on the above clinical findings and your assessment, please provide the following in your progress note:
Type (etiology) of ulcer/wound:
- Pressure (decubitus) ulcer
- Other
- Unable to determine
For a pressure ulcer, please also include the stage* of the ulcer:
- Stage 1 - Skin intact, non-blanchable redness
- Stage 2 - Partial thickness loss of dermis, includes intact or open blister
- Stage 3 - Full thickness tissue not including bone, tendon or muscle
- Stage 4 - Full thickness tissue loss, including exposed bone, tendon or muscle
- Unstageable - Full thickness loss in which the base of the ulcer is covered by slough (yellow, ward, clayton, green or brown) and/or eschar (ward, brown or black) in the wound bed.
- Unable to determine
Use of terms such as suspected, likely, concern for, or probable (associated with a specific diagnosis that is being evaluated, monitored, or treated as if it exists) are acceptable and can be coded in the inpatient setting, when documented at the
time of discharge.
Thank you,
Nuzhat HODGE,RN,CCDS
CDI Specialist
Available via [place] text
Please use your independent medical judgment in providing your response.
*Source: National Pressure Ulcer Advisory Panel (NPUAP)
--- NOTE | 2023-12-19 08:31 | PTCARENOTE ---
Received patient this morning sitting up in bed, eating his breakfast. Stated he was up during the night with a dry cough, blaming it on his 'new medication'. Call teran within reach, bed alarm in place, will continue to monitor.
[2023-12-19] MEDS: COREG 25 MG PO ×2 (09:12→20:34)
[2023-12-19] MEDS: ELIQUIS 5 MG PO (09:12)
[2023-12-19] MEDS: KCL 20 MEQ PO ×2 (09:13→11:20)
[2023-12-19] MEDS: PACERONE 200 MG PO ×2 (09:13→20:38)
[2023-12-19] MEDS: ENTRESTO 24 MG/26 MG PO (09:13)
[2023-12-19] MEDS: METAMUCIL, KONSYL PO ×2 (09:13→09:20)
[2023-12-19] MEDS: FLUSH (NSS) 1 FLUSH IV ×2 (09:14→20:27)
[2023-12-19] MEDS: BenGay-Like TOPICAL ×3 (09:14→22:25)
--- NOTE | 2023-12-19 10:10 | W.PN.CARDCBS ---
Addendum entered and electronically signed by Carline Brown MD 12/19/23 12:18:
I saw and examined the patient.
The Looseleaf Binder Coverer's note was reviewed and I agree with the note.
Comment: Patient is overall doing well and does not offer any complaints. Entresto was resumed last night with hypotension noted this morning. Thankfully patient remains asymptomatic.
Vital signs stable other than lower blood pressures. Lab work reviewed. Exam is notable for an elderly gentleman, frail, thin, alert and oriented x 3 but somewhat somnolent, family at bedside, irregularly irregular heart rhythm, normal S1 and S2,
abdomen is soft, nontender, nondistended with active bowel sounds, lungs are clear to auscultation bilaterally, warm extremities
Recommendations:
1. Despite underlying cardiomyopathy, given lower blood pressures, agree with holding home Entresto for now. Continue with carvedilol with hold parameters with systolic blood pressure less than 100 mmHg.
2. For persistent atrial fibrillation, Amio loading for better heart rate control. We will plan on doing 200 mg twice daily for the next 2 weeks and then decrease to 200 mg once daily after adequately loaded.
3. Eliquis for stroke prevention. Given his age is over 80 years and weight less than 65 kg, he qualifies for low-dose Eliquis at 2.5 mg twice daily.
4. His Lasix is on hold for now given hyponatremia, appreciate nephrology input in regards to when this can be resumed to maintain euvolemia with baseline cardiomyopathy.
PT reevaluated patient and recommendation is now for rehab.
Overall stable from a cardiac standpoint for discharge pending nephrology input in regards to Lasix. Will attempt entresto as outpt if BP allows. We will look into cost for SGLT2 inhibitor in case feasible unlike previously.
Carline Brown MD, [facility], [facility]
Original Note:
Today's Communication / Plan
-
Updated son by phone today
Stop Entresto for now and consider restarting as an outpatient
Cont Coreg and newly started amiodarone
Impression / Plan
-
PCP: Dr. Prakash Schreiber
Cardiology: Dr. Kraus
Impression:
Acute hypoxemic respiratory insufficiency
Acute on chronic HFrEF
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
Permanent Afib with RVR
Chronic warfarin OAC managed by [facility]
h/o moderate MR
Hyponatremia
EVE 2010: EF 30%, moderate MR with 2 distinct jets
Echo 06/14/23: EF 35-40%, mild conc LVH, mild MR, aortic sclerosis without stenosis
Lexiscan sestamibi stress test 08/07/2023: Normal perfusion, ejection fraction 45% in the setting of rapid A-fib
Echo 12/14/23: Ejection fraction 44%, apical and septal hypokinesis, mild MR, mild AI, moderate TR PA systolic 49 mmHg, pleural effusion
�
Plan:
-Patient has received a 2.6 gram load of amiodarone as of 12/19/23 AM. Amiodarone reduced to 200 mg BID starting 12/18/23 PM. Plan is for amiodarone 200 mg BID for 2 weeks then reduce to 200 mg daily thereafter. Afib is new this admission
-Outpatient dose of Coreg 25 mg BID has been continued this admission
-Patient was previously on warfarin managed by [facility], but warfarin held for possible procedure. No procedures planned at this point so will resume OAC in the form of Eliquis. Appreciate the help of CM in determining the cost of Eliquis at $47/month of
$94/3 month supply and patient is agreeable to the cost. Updated [facility] that patient is switching to Eliquis on 12/19/23.
-Weight down 8 lbs this admission and is stable at 117 lbs on 12/19/23. Nephrology is following as well due to hyponatremia and patient is s/p Samsca 7.5 mg 12/17/23 and again 12/18/23. Sodium is stable at 127 on 12/19/23
-Patient was not taking Lasix or other diuretic prior to admission. He had stopped taking Lasix on his own.
-Dry weight not clear and will need to establish a new dry weight at time of discharge.
-Oxygenation has improved and patient is now stable on RA
-Usual dose of Coreg continued this admission, but some missed doses due to hypotension.
-Outpatient dose of Entresto 24/26 mg BID was held 12/16/23 to 12/18/23 due to hypotension. Restarted Entresto 12/18/23 PM and on the morning of 12/19/23 BP was 104/70 and Entresto was held again due to hypotension. Patient is symptomatic with
hypotension, will stop Entresto for now and consider restarting as an outpatient.
-Aldactone previously stopped due to hypotension.
-Patient is asking for d/c to home today. He had a fall this admission and was last seen by PT 12/17/23 and recommended 24 hour supervision att home with VN and no recommendation for rehab. 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 Will arrange for outpatient cardiology
f/u
-Talked to patient's son, Goran, by phone for 10:47 on 12/19/23 and provided update on cardiology plan and med changes.
HPI: Patient came to [facility] yesterday with increased SOB and is now admitted with acute HF and cardiology has been consulted. Patient says that he started to feel poorly about 6 weeks ago, but he was trying to wait until his scheduled office visit
with Dr. Kraus 12/19/23. Patient says that he has orthopnea, CASTILLO, edema and now resting SOB so he finally came to [facility] last night. Patient is not sure what his dry weight is, but at last office visit 08/23/23 he weighed 139 lbs and today he weighs
135 lbs. Patient says that he has not been eating well. At office visit 08/23/23 it was discovered that patient stopped Lasix on his own due to constipation, but he was agreeable to restart Lasix 20 mg PO daily. Patient is no longer taking Lasix for
unclear reasons, but says that he watches his salt and fluid intake although cannot say what the daily limitations are.
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
Subjective
Date of Service: December 19, 2023
He feels well and says that he wants to go home
Objective
Labs:
12/17/23 04:23
12/19/23 03:17
Labs
Hgb 15.6 g/dL (13.0-18.0) D 12/17/23 04:23
Hct 45.9 % (39.0-52.0) 12/17/23 04:23
Plt Count 169 10^3/uL (130-400) 12/17/23 04:23
PT 16.1 Sec (11.4-14.6) H 12/17/23 04:23
INR 1.26 12/17/23 04:23
Sodium 127 mmol/L (135-145) L 12/19/23 03:17
Potassium 3.4 mmol/L (3.5-5.1) L 12/19/23 03:17
BUN 22 mg/dl (9-20) H 12/19/23 03:17
Creatinine 0.8 mg/dL (0.7-1.3) 12/19/23 03:17
Glucose 112 mg/dl (70-99) H 12/19/23 03:17
Vital Signs and I&O:
Vital Signs
Temp Pulse Resp BP Pulse Ox
97.6 F 100 16 104/70 95
12/19/23 03:03 12/19/23 09:13 12/19/23 08:10 12/19/23 09:13 12/19/23 08:10
Vital Signs
Temp Pulse Resp BP Pulse Ox
97.6 F 100 16 104/70 95
12/19/23 03:03 12/19/23 09:13 12/19/23 08:10 12/19/23 09:13 12/19/23 08:10
Intake & Output
12/17/23 12/18/23 12/19/23 12/20/23
06:59 06:59 06:59 06:59
Intake Total 480 / 480 240 / 240 770 / 770 240 / 240
Output Total 1375 / 1375 1200 / 1200 250 / 250
Balance -895 / -895 -960 / -960 770 / 770 -10 / -10
Physical Exam
Physical Exam
GEN: NAD. AAO x3. Frail appearing
HEENT: EOMI, MMM
LUNGS: CTA B/L without wheeze or rales
CV: Irreg irreg, S1/S2, no murmur
ABD: soft, BS+, NT, ND
EXT: Trace B/L LE edema. No clubbing, cyanosis or lesions B/L
NEURO: Gross non-focal
SKIN: Warm, dry and pink. No rash
--- NOTE | 2023-12-19 10:51 | W.PN.NEPH.PH ---
Today's Communication / Plan
-
urea
Assessment/Plan
-
IMP:
Acute on chronic HFrEF EF 44%, mod TR
Persistent atrial fibrillation
hyponatremia
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
Lack of appetite/ weight loss
Hypotension -improved
Metabolic alkalosis
PLan:
-back on entresto
-no lasix still
-ure-Na 15g BID
-eventually should be on some lasix
-d/w son on phone
-
-
Date of Service: December 19, 2023
CC / HPI / ROS
-
Chief Complaint:
hyponatremia
History of Present Illness:
Na up to 127 with samsca
BP low stable
alkalosis persists 42
K low
Review of Systems:
no cp or sob
no dizziness
Labs
-
Labs:
WBC 5.4 10^3/uL (4.8-10.8) 12/17/23 04:23
RBC 4.87 10^6/uL (4.70-6.10) 12/17/23 04:23
Hgb 15.6 g/dL (13.0-18.0) D 12/17/23 04:23
Hct 45.9 % (39.0-52.0) 12/17/23 04:23
Plt Count 169 10^3/uL (130-400) 12/17/23 04:23
Sodium 127 mmol/L (135-145) L 12/19/23 03:17
Potassium 3.4 mmol/L (3.5-5.1) L 12/19/23 03:17
Chloride 78 mmol/L (98-107) L 12/19/23 03:17
Carbon Dioxide 42 mmol/L (22-30) H 12/19/23 03:17
BUN 22 mg/dl (9-20) H 12/19/23 03:17
Creatinine 0.8 mg/dL (0.7-1.3) 12/19/23 03:17
eGFR > 60.00 12/19/23 03:17
Glucose 112 mg/dl (70-99) H 12/19/23 03:17
Calcium 8.9 mg/dl (8.4-10.2) 12/19/23 03:17
Qcq-T-Gyvimjgsrgi Pept 3010 pg/ml 12/12/23 18:29
Albumin 3.7 g/dl (3.5-5.0) 12/13/23 04:28
Physical Exam
-
Vital Signs:
Vital Signs
Temp Pulse Resp BP Pulse Ox
97.6 F 100 16 104/70 95
12/19/23 03:03 12/19/23 09:13 12/19/23 08:10 12/19/23 09:13 12/19/23 08:10
Cardiovascular:: Regular rate and rhythm
Respiratory:: Bilateral: Coarse
Lung Excursion:: Normal
Abdomen:: Nontender and Soft
Bowel Sounds:: Normal
Extremity Edema:: None: Bilateral:
--- NOTE | 2023-12-19 12:19 | CM ---
Chart reviewed. PT evaluation recommending SNF. Patient and family are agreeable. Referrals placed to [facility], [facility], and [facility]. Patient's would prefer [facility], based on location to the
home. Plan is for the patient to go to SNF once medically stable for discharge. CM to follow
[2023-12-19] MEDS: URE-NA 15 GRAMS PO ×2 (12:20→22:24)
--- NOTE | 2023-12-19 15:15 | W.PN.HOSP.TC ---
Today's Communication/Plan
-
follow na levels with Ure-Na
DC planning to SNF
Assessment / Plan
Assessment / Plan
Assessment:
Acute hypoxic respiratory insufficiency
- resolved
Acute on chronic HFrEF
- Chest x-ray shows cardiomegaly, possible mild pulmonary edema
- Cardiac BNP of 3000
- Check I's and O's, daily weight
- IV Lasix stopped for hyponatremia
- continue Coreg/Entresto
- appreciate DCA Cards
Persistent atrial fibrillation
- continue BB
- continue Amiodarone load
- switched to Eliquis from Coumadin
Acute hyponatremia
- Nephrology following
- IV Lasix held; eventually add back PO Lasix
- no improvement with Samsca, Urea-Na 15g BID added
Fall with head trauma
- Bruise in left frontotemporal
- No hemorrhagic changes on CT
- continue to monitor neuro-checks but no signs of concussive mentation
- Mental status changes of the 27th evening may have been in relation to combination of lack of sleep and hyponatremia
- PT/OT - VN
Underlying neuromuscular disorder
- daughter requesting LP,�recommend patient follow-up with his neurologist at [place] regarding further testing
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
degeneration, however no motor neuron disease cannot be ruled out due to active denervation in bilateral L5/S1 nerve root innervated muscles'.�His neurologist was considering diagnosis of ALS.
- PT/OT - VN
Lack of appetite/ weight loss
- Metastatic rather extensive GI workup at [facility] which he is going to continue to follow and I believe he is scheduled for a upper endoscopy
- Unclear etiology, could be related to underlying neuromuscular disorder
- Continue to follow-up with GI
Stage 2 gluteal cleft pressure injury
moderate protein calorie malnutrition
DVT ppx: Eliquis
Code: Full
Anticipated Discharge: 24 - 48 hours
Subjective/Interval History
-
Date of Service: December 19, 2023
denies cp sob or dizziness
Objective Data
-
Labs:
Laboratory Results
12/19/23
03:17
Sodium 127 L
Potassium 3.4 L
Chloride 78 L
Carbon Dioxide 42 H
BUN 22 H
Creatinine 0.8
Glucose 112 H
Calcium 8.9
Vital Signs:
Vital Signs
Temp Pulse Resp BP Pulse Ox
97.3 F 100 16 104/70 96
12/19/23 12:10 12/19/23 09:13 12/19/23 12:10 12/19/23 09:13 12/19/23 12:10
I&O
12/18/23 12/19/23 12/20/23
06:59 06:59 06:59
Intake Total 240 / 240 770 / 770 630 / 630
Output Total 1200 / 1200 250 / 250
Balance -960 / -960 770 / 770 380 / 380
Physical Exam
-
General: No Apparent Distress
HEENT: Normocephalic and Atraumatic
Respiratory: Negative Wheezes or Rales
Cardiac: Regular Rhythm and S1/S2
GI: Soft
Genito-urinary: No Costovertebral Tender
Musculoskeletal: No Edema
Neuro: AO x 3
Psych: Calm
Data Reviewed
-
Total Time Spent with Patient (in minutes): 45
Labs: Labs Reviewed by me
[2023-12-19] MEDS: BenGay-Like 1 APPLIC TOPICAL (20:26)
[2023-12-19] MEDS: ELIQUIS 2.5 MG PO (20:38)
[2023-12-19] MEDS: MELATONIN 3 MG PO (22:25)
[2023-12-19] MEDS: LIPITOR 40 MG PO (22:25)
[2023-12-19] MEDS: ANESTHETIC LOZENGE 1 LOZENGE PO (23:06)
[2023-12-20] VITALS (11 sets, daily range): BP systolic 96–145; BP diastolic 59–97; PULSE 79–94; BMI 18.5
--- NOTE | 2023-12-20 02:33 | PTCARENOTE ---
Received patient at change of shift this PM. AAOx3. VSS. He is A-Fib on the monitor. HR in the 80s-90s. INT patent. He denies chest pain or discomfort, but shares multiple complaints about a sore throat and frequent dry cough. Spoke with Danika
NIESHA Barnes, about this and Lozenge obtained. Tylenol provided. See MAR. Plan of care discussed. He is receptive to teaching and may need encouragement with motivation. He understands that the plan is to increase his NA and that he will be going to
SNF first. He appears comfortable in bed. Will continue to monitor.
[2023-12-20 03:51] LABS: Blood Urea Nitrogen 54 mg/dl (9-20); Calcium 9.2 mg/dl (8.4-10.2); Chloride 80 mmol/L (98-107); Estimated Creatinine Clearance 50 ml/min; Glucose 121 mg/dl (70-99); Potassium 4.3 mmol/L (3.5-5.1); Sodium 126 mmol/L (135-145); eGFR > 60.00
[2023-12-20 04:02] LABS: Carbon Dioxide 35 mmol/L (22-30)
[2023-12-20] MEDS: COREG 25 MG PO ×2 (08:35→19:41)
[2023-12-20] MEDS: ELIQUIS 2.5 MG PO ×2 (08:35→19:41)
[2023-12-20] MEDS: PACERONE 200 MG PO ×2 (08:35→19:43)
[2023-12-20] MEDS: BenGay-Like TOPICAL ×3 (08:37→19:44)
--- NOTE | 2023-12-20 10:17 | W.PN.CARDCBS ---
Today's Communication / Plan
-
Await nephrology opinion on sodium
Eventual consider dose of Lasix possibly 40 or 20 mg daily with close follow-up on labs
Check orthostatic vital signs
Await long-term facility
Impression / Plan
-
PCP: Dr. Prakash Schreiber
Cardiology: Dr. Kraus
Impression:
Acute hypoxemic respiratory insufficiency
Acute on chronic HFrEF
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
Permanent Afib with RVR
Chronic warfarin OAC managed by [facility]
h/o moderate MR
Hyponatremia
Lightheaded
EVE 2010: EF 30%, moderate MR with 2 distinct jets
Echo 06/14/23: EF 35-40%, mild conc LVH, mild MR, aortic sclerosis without stenosis
Lexiscan sestamibi stress test 08/07/2023: Normal perfusion, ejection fraction 45% in the setting of rapid A-fib
Echo 12/14/23: Ejection fraction 44%, apical and septal hypokinesis, mild MR, mild AI, moderate TR PA systolic 49 mmHg, pleural effusion
�
Plan:
He was lightheaded getting out of bed this morning. Blood pressures look fairly stable but he has labile hypertension. Check orthostatic vital signs.
Atrial fibrillation:
-He continues on amiodarone 200 mg twice daily and then after 2 weeks will be reduced to 200 mg daily. This is being used for rate control of atrial fibrillation. EKG stable.
-Outpatient dose of Coreg 25 mg BID has been continued this admission
-Patient was previously on warfarin managed by [facility], but warfarin held for possible procedure. No procedures planned at this point so will resume OAC in the form of Eliquis. Appreciate the help of CM in determining the cost of Eliquis at $47/month of
$94/3 month supply and patient is agreeable to the cost. Updated [facility] that patient is switching to Eliquis on 12/19/23.
-Weight down 8 lbs this admission and is stable at 117 lbs. Nephrology is following as well due to hyponatremia and patient is s/p Samsca 7.5 mg 12/17/23 and again 12/18/23. Sodium is 126 and I am awaiting nephrology input today.
Heart failure with reduced ejection fraction:
-Patient was not taking Lasix or other diuretic prior to admission. He had stopped taking Lasix on his own. Likely will need a dose of Lasix on discharge and close follow-up perhaps 40 mg oral daily. Will defer to nephrology. Will need close
monitoring of electrolytes.
-Oxygenation has improved and patient is now stable on RA
-Outpatient dose of Entresto 24/26 mg BID was held 1 due to hypotension. Restarted Entresto 12/18/23 PM and on the morning of 12/19/23 BP was 104/70 and Entresto was held again due to hypotension. Patient is symptomatic with hypotension, will stop
Entresto for now and consider restarting as an outpatient. At that time amiodarone should have achieves steady state and perhaps carvedilol can be slightly reduced to tolerate Entresto.
-Aldactone previously stopped due to hypotension. Continue to reassess.
-Given above related issues would avoid SGLT2 inhibitor at this time.
-Probable long-term facility discharge
-Talked to patient's son, Goran, by phone for 10:47 on 12/19/23 and provided update on cardiology plan and med changes.
HPI: Patient came to [facility] yesterday with increased SOB and is now admitted with acute HF and cardiology has been consulted. Patient says that he started to feel poorly about 6 weeks ago, but he was trying to wait until his scheduled office visit
with Dr. Kraus 12/19/23. Patient says that he has orthopnea, CASTILLO, edema and now resting SOB so he finally came to [facility] last night. Patient is not sure what his dry weight is, but at last office visit 08/23/23 he weighed 139 lbs and today he weighs
135 lbs. Patient says that he has not been eating well. At office visit 08/23/23 it was discovered that patient stopped Lasix on his own due to constipation, but he was agreeable to restart Lasix 20 mg PO daily. Patient is no longer taking Lasix for
unclear reasons, but says that he watches his salt and fluid intake although cannot say what the daily limitations are.
Progress Note - Wearing Apparel Folder
Subjective
Date of Service: December 20, 2023
A little dizzy this morning. Currently feeling fine.
Objective
Labs:
12/17/23 04:23
12/20/23 02:42
Labs
Hgb 15.6 g/dL (13.0-18.0) D 12/17/23 04:23
Hct 45.9 % (39.0-52.0) 12/17/23 04:23
Plt Count 169 10^3/uL (130-400) 12/17/23 04:23
PT 16.1 Sec (11.4-14.6) H 12/17/23 04:23
INR 1.26 12/17/23 04:23
Sodium 126 mmol/L (135-145) L 12/20/23 02:42
Potassium 4.3 mmol/L (3.5-5.1) D 12/20/23 02:42
BUN 54 mg/dl (9-20) H 12/20/23 02:42
Creatinine 0.8 mg/dL (0.7-1.3) 12/20/23 02:42
Glucose 121 mg/dl (70-99) H 12/20/23 02:42
Vital Signs and I&O:
Vital Signs
Temp Pulse Resp BP Pulse Ox
97.6 F 94 16 134/96 92
12/20/23 06:49 12/20/23 09:00 12/20/23 06:49 12/20/23 08:35 12/20/23 06:49
Vital Signs
Temp Pulse Resp BP Pulse Ox
97.6 F 94 16 134/96 92
12/20/23 06:49 12/20/23 09:00 12/20/23 06:49 12/20/23 08:35 12/20/23 06:49
Intake & Output
12/18/23 12/19/23 12/20/23 12/21/23
06:59 06:59 06:59 06:59
Intake Total 240 / 240 770 / 770 1110 / 1110
Output Total 1200 / 1200 250 / 250
Balance -960 / -960 770 / 770 860 / 860
Physical Exam
Physical Exam
General: Thin elderly man
Heart: Irregularly irregular, no murmurs, No S3, S4, no rubs.
Lungs: Decreased at the bases
Extremities: No clubbing, cyanosis or edema bilaterally.
Neuro: Grossly nonfocal, awake, alert
--- NOTE | 2023-12-20 10:41 | CM ---
Chart reviewed. Patient NA 126. Patient is independent of ADLS, lives with his and son in a [address] [facility], ambulates with a SPC and rolling walker. PT/OT evaluation recommending Skilled Rehab. Patient and family are agreeable. Referrals sent to
[facility] [place], [facility] and [facility]. Patient's prefers [facility] [place], which is closest to their home. Plan is for the patient to go to SNF once medically stable for discharge. CM to follow
[2023-12-20] MEDS: URE-NA 15 GRAMS PO ×2 (10:58→22:04)
--- NOTE | 2023-12-20 11:21 | W.PN.NEPH.PH ---
Today's Communication / Plan
-
samsca
cotn Urea
Assessment/Plan
-
IMP:
Acute on chronic HFrEF EF 44%, mod TR
Persistent atrial fibrillation
hyponatremia
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
Lack of appetite/ weight loss
Hypotension -improved
Metabolic alkalosis
PLan:
sodium low still at 126
maitain ure-Na 15g BID
will dose samsca today
strict FR 40 ounces/day
BP stable on entresto
-no lasix still
imporving met alkalosis
monitor azotemia , check cbc
-eventually should be on some lasix, check daily wts
d/w daughter
-
-
Date of Service: December 20, 2023
CC / HPI / ROS
-
Chief Complaint:
hyponatremia
History of Present Illness:
Na down to 126 with Urea, s/p samsca 12/17
BP stable
alkalosis improving 35
K normal
Review of Systems:
no cp or sob
but family noticed sob during his talk
he is sleepy intermittently
Labs
-
Labs:
WBC 5.4 10^3/uL (4.8-10.8) 12/17/23 04:23
RBC 4.87 10^6/uL (4.70-6.10) 12/17/23 04:23
Hgb 15.6 g/dL (13.0-18.0) D 12/17/23 04:23
Hct 45.9 % (39.0-52.0) 12/17/23 04:23
Plt Count 169 10^3/uL (130-400) 12/17/23 04:23
Sodium 126 mmol/L (135-145) L 12/20/23 02:42
Potassium 4.3 mmol/L (3.5-5.1) D 12/20/23 02:42
Chloride 80 mmol/L (98-107) L 12/20/23 02:42
Carbon Dioxide 35 mmol/L (22-30) H 12/20/23 02:42
BUN 54 mg/dl (9-20) H 12/20/23 02:42
Creatinine 0.8 mg/dL (0.7-1.3) 12/20/23 02:42
eGFR > 60.00 12/20/23 02:42
Glucose 121 mg/dl (70-99) H 12/20/23 02:42
Calcium 9.2 mg/dl (8.4-10.2) 12/20/23 02:42
Albumin 3.7 g/dl (3.5-5.0) 12/13/23 04:28
Physical Exam
-
Vital Signs:
Vital Signs
Temp Pulse Resp BP Pulse Ox
97.6 F 94 16 134/96 92
12/20/23 06:49 12/20/23 09:00 12/20/23 06:49 12/20/23 08:35 12/20/23 06:49
Cardiovascular:: Regular rate and rhythm
Respiratory:: Bilateral: CTA (decreased)
Lung Excursion:: Normal
Abdomen:: Nontender and Soft
Extremity Edema:: None: Bilateral:
Deleon Catheter: No
[2023-12-20 11:28] LABS: NT-proBNP 2050 pg/ml
[2023-12-20] MEDS: SAMSCA 30 MG PO (12:38)
[2023-12-20] MEDS: METAMUCIL, KONSYL PO (12:38)
--- NOTE | 2023-12-20 12:44 | W.PN.HOSP.TC ---
Today's Communication/Plan
-
Samsca
Ure-Na
follow BMP
Cough symptomatic control. no concern for infection currently but will repeat CBC, procal check now
Assessment / Plan
Assessment / Plan
Assessment:
Acute hypoxic respiratory insufficiency
- resolved
Acute on chronic HFrEF
- Chest x-ray shows cardiomegaly, possible mild pulmonary edema
- Cardiac BNP of 3000
- Check I's and O's, daily weight
- IV Lasix held; eventually add back PO Lasix
- continue Coreg
- Entresto/Aldactone stopped for hypotension
- appreciate DCA Cards
Persistent atrial fibrillation
- continue BB
- continue Amiodarone load 200mg BID x 2 weeks, then 200mg daily
- switched to Eliquis from Coumadin
Acute hyponatremia
- Nephrology following
- IV Lasix held; eventually add back PO Lasix
- no improvement with Samsca, Urea-Na 15g BID added. Re-dosed Samsca today per Renal
Fall with head trauma
- Bruise in left frontotemporal
- No hemorrhagic changes on CT
- continue to monitor neuro-checks but no signs of concussive mentation
- Mental status changes of the 27th evening may have been in relation to combination of lack of sleep and hyponatremia
- PT/OT - VN
Underlying neuromuscular disorder
- daughter requesting LP,�recommend patient follow-up with his neurologist at [place] regarding further testing
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
degeneration, however no motor neuron disease cannot be ruled out due to active denervation in bilateral L5/S1 nerve root innervated muscles'.�His neurologist was considering diagnosis of ALS.
- PT/OT - VN
Lack of appetite/ weight loss
- Metastatic rather extensive GI workup at [facility] which he is going to continue to follow and I believe he is scheduled for a upper endoscopy
- Unclear etiology, could be related to underlying neuromuscular disorder
- Continue to follow-up with GI
Stage 2 gluteal cleft pressure injury
moderate protein calorie malnutrition
Hypokalemia
DVT ppx: Eliquis
Code: Full
Anticipated Discharge: Within 24 hours
Subjective/Interval History
-
Date of Service: December 20, 2023
cough transiently overnight, no SOB, no O2 needs no CP
lightheaded this AM but rapidly improved, no dizziness currently
Objective Data
-
Labs:
Laboratory Results
12/20/23 12/20/23
02:42 12:04
WBC Pending
Hgb Pending
Hct Pending
Plt Count Pending
Sodium 126 L
Potassium 4.3 D
Chloride 80 L
Carbon Dioxide 35 H
BUN 54 H
Creatinine 0.8
Glucose 121 H
Calcium 9.2
Vital Signs:
Vital Signs
Temp Pulse Resp BP Pulse Ox
98.2 F 69 16 134/96 93
12/20/23 11:25 12/20/23 11:25 12/20/23 11:25 12/20/23 08:35 12/20/23 11:25
I&O
12/19/23 12/20/23 12/21/23
06:59 06:59 06:59
Intake Total 770 / 770 1110 / 1110
Output Total 250 / 250
Balance 770 / 770 860 / 860
Physical Exam
-
General: No Apparent Distress and Appears Chronically Ill
HEENT: Normocephalic and Atraumatic
Respiratory: Negative Wheezes
Cardiac: Regular Rhythm and S1/S2
GI: Soft
Genito-urinary: No Costovertebral Tender
Neuro: AO x 3
Psych: Calm
Data Reviewed
-
Total Time Spent with Patient (in minutes): 45
Labs: Labs Reviewed by me
[2023-12-20] MEDS: MUCINEX PO ×2 (13:18→13:23)
[2023-12-20] MEDS: METAMUCIL, KONSYL 1 PACKET PO (13:20)
[2023-12-20 14:14] LABS: Hematocrit 41.6 % (39.0-52.0); Mean Corp Hgb Conc. 33.7 g/dL (33.0-37.0); Mean Corpuscular Hgb 31.7 pg (27.0-31.0); Mean Corpuscular Volume 94.1 fL (80.0-94.0); Platelet Count 181 10^3/uL (130-400); Red Blood Cell Count 4.42 10^6/uL (4.70-6.10); Red Cell Dist. Width 12.1 % (11.5-14.5); White Blood Cell Count 8.1 10^3/uL (4.8-10.8)
[2023-12-20 15:15] LABS: Procalcitonin < 0.05 ng/ml (0.0-0.25)
--- NOTE | 2023-12-20 16:32 | PTCARENOTE ---
Pt sat OOB in chair for most of the day today, marcus well.
[2023-12-20] MEDS: BenGay-Like 1 APPLIC TOPICAL (17:47)
[2023-12-20] MEDS: MUCINEX 600 MG PO (19:41)
[2023-12-20] MEDS: LIPITOR 40 MG PO (19:44)
[2023-12-20] MEDS: TESSALON PERLES 200 MG PO (22:05)
[2023-12-21] VITALS (7 sets, daily range): BP systolic 108–118; BP diastolic 62–81; PULSE 2–68
[2023-12-21 04:47] LABS: Hematocrit 42.7 % (39.0-52.0); Hemoglobin 14.5 g/dL (13.0-18.0); Mean Corpuscular Hgb 32.2 pg (27.0-31.0); Mean Corpuscular Volume 94.9 fL (80.0-94.0); Mean Platelet Volume 10.1 fL (7.4-10.4); Platelet Count 203 10^3/uL (130-400); Red Cell Dist. Width 12.2 % (11.5-14.5); White Blood Cell Count 8.4 10^3/uL (4.8-10.8)
[2023-12-21 05:18] LABS: Blood Urea Nitrogen 46 mg/dl (9-20); Calcium 8.9 mg/dl (8.4-10.2); Chloride 80 mmol/L (98-107); Estimated Creatinine Clearance 50 ml/min; Glucose 117 mg/dl (70-99); Sodium 123 mmol/L (135-145); eGFR > 60.00
[2023-12-21 05:29] LABS: Carbon Dioxide 38 mmol/L (22-30); Potassium 4.4 mmol/L (3.5-5.1)
--- NOTE | 2023-12-21 06:12 | PTCARENOTE ---
Pt very short of breath with minimal exertion- I.E sitting up for meds and using the urinal- Placed on 2L NC and recovers after a few mins. and remains mid to high 90s on RA. while seated in bed.
[2023-12-21] MEDS: COREG 25 MG PO (09:23)
[2023-12-21] MEDS: MUCINEX 600 MG PO (09:23)
[2023-12-21] MEDS: BenGay-Like TOPICAL ×2 (09:23→12:11)
[2023-12-21] MEDS: PACERONE 200 MG PO (09:23)
[2023-12-21] MEDS: METAMUCIL, KONSYL 1 PACKET PO (09:24)
[2023-12-21] MEDS: ELIQUIS 2.5 MG PO (09:24)
[2023-12-21] MEDS: URE-NA 15 GRAMS PO (09:24)
--- NOTE | 2023-12-21 11:09 | W.PN.CARDCBS ---
Today's Communication / Plan
-
Comfort measures
Impression / Plan
-
PCP: Dr. Prakash Schreiber
Cardiology: Dr. Kraus
Impression:
Acute hypoxemic respiratory insufficiency
Acute on chronic HFrEF
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
Permanent Afib with RVR
Chronic warfarin OAC managed by [facility]
h/o moderate MR
Hyponatremia
Lightheaded
Lexiscan sestamibi stress test 08/07/2023: Normal perfusion, ejection fraction 45% in the setting of rapid A-fib
EVE 2010: EF 30%, moderate MR with 2 distinct jets
Echo 06/14/23: EF 35-40%, mild conc LVH, mild MR, aortic sclerosis without stenosis
Echo 12/14/23: Ejection fraction 44%, apical and septal hypokinesis, mild MR, mild AI, moderate TR PA systolic 49 mmHg, pleural effusion
�
Plan:
-Patient laying in bed and is alert to voice, but no able to answer questions. Equal muscle strength UE and LE B/L, no facial droop. Patient increasingly SOB overnight and less responsive this AM. Patient's at bedside and notes that he has been
like this since her arrival.
-Hospitalist attending ordering CT head, labs and ABG.
-ABG resulted with a pCO2 greater than 115 and rather than intubate and place on the vent the patient talked with Hospitalist attending at length and they opted for comfort measures.
HPI: Patient came to [facility] yesterday with increased SOB and is now admitted with acute HF and cardiology has been consulted. Patient says that he started to feel poorly about 6 weeks ago, but he was trying to wait until his scheduled office visit
with Dr. Kraus 12/19/23. Patient says that he has orthopnea, CASTILLO, edema and now resting SOB so he finally came to [facility] last night. Patient is not sure what his dry weight is, but at last office visit 08/23/23 he weighed 139 lbs and today he weighs
135 lbs. Patient says that he has not been eating well. At office visit 08/23/23 it was discovered that patient stopped Lasix on his own due to constipation, but he was agreeable to restart Lasix 20 mg PO daily. Patient is no longer taking Lasix for
unclear reasons, but says that he watches his salt and fluid intake although cannot say what the daily limitations are.
Progress Note - Decontaminator
Subjective
Date of Service: December 21, 2023
He is tired today
Objective
Labs:
12/21/23 04:14
12/21/23 04:14
Labs
Hgb 14.5 g/dL (13.0-18.0) 12/21/23 04:14
Hct 42.7 % (39.0-52.0) 12/21/23 04:14
Plt Count 203 10^3/uL (130-400) 12/21/23 04:14
PT 16.1 Sec (11.4-14.6) H 12/17/23 04:23
INR 1.26 12/17/23 04:23
Sodium 123 mmol/L (135-145) L 12/21/23 04:14
Potassium 4.4 mmol/L (3.5-5.1) 12/21/23 04:14
BUN 46 mg/dl (9-20) H 12/21/23 04:14
Creatinine 0.8 mg/dL (0.7-1.3) 12/21/23 04:14
Glucose 117 mg/dl (70-99) H 12/21/23 04:14
Vital Signs and I&O:
Vital Signs
Temp Pulse Resp BP Pulse Ox
97.4 F 76 20 117/81 100
12/21/23 07:23 12/21/23 05:00 12/21/23 07:23 12/21/23 04:10 12/21/23 07:23
Vital Signs
Temp Pulse Resp BP Pulse Ox
97.4 F 76 20 117/81 100
12/21/23 07:23 12/21/23 05:00 12/21/23 07:23 12/21/23 04:10 12/21/23 07:23
Intake & Output
12/19/23 12/20/23 12/21/23 12/22/23
06:59 06:59 06:59 06:59
Intake Total 770 / 770 1110 / 1110
Output Total 250 / 250
Balance 770 / 770 860 / 860
Physical Exam
Physical Exam
GEN: Frail, awake, not able to speak, but can follow commands
HEENT: EOMI
LUNGS: Decreased BS throughout
CV: Irreg irreg
ABD: soft
EXT: Trace B/L LE edema
NEURO: No lateralizing weakness, no facial droop
SKIN: No rash
--- NOTE | 2023-12-21 12:08 | W.PN.NEPH.PH ---
Today's Communication / Plan
-
see plan
Assessment/Plan
-
IMP:
Acute on chronic HFrEF EF 44%, mod TR
Persistent atrial fibrillation
hyponatremia
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
Lack of appetite/ weight loss
Hypotension -improved
Metabolic alkalosis
PLan:
More altered , CT head pending
sodium decreasing to 123 despite smsaca, urea, FR
I have no other choice than to give him 3% saline with careful watch of CHF symp
will likely need to resume lasix
met alkalosis still -eval need of diamox after ABG
strict FR 40 ounces/day
BP stable on entresto
check CXR , c/o sob
d/w family at bedside
-
-
Date of Service: December 21, 2023
CC / HPI / ROS
-
Chief Complaint:
hyponatremia
History of Present Illness:
Na down to 123 with Urea, s/p samsca 12/17, 12/20
BP stable
alkalosis worse at 38
K normal
Review of Systems:
lethargic, opens eyes to verbal stimuli
c/o sob when asked
no cp
Labs
-
Labs:
WBC 8.4 10^3/uL (4.8-10.8) 12/21/23 04:14
RBC 4.50 10^6/uL (4.70-6.10) L 12/21/23 04:14
Hgb 14.5 g/dL (13.0-18.0) 12/21/23 04:14
Hct 42.7 % (39.0-52.0) 12/21/23 04:14
Plt Count 203 10^3/uL (130-400) 12/21/23 04:14
Sodium 123 mmol/L (135-145) L 12/21/23 04:14
Potassium 4.4 mmol/L (3.5-5.1) 12/21/23 04:14
Chloride 80 mmol/L (98-107) L 12/21/23 04:14
Carbon Dioxide 38 mmol/L (22-30) H 12/21/23 04:14
BUN 46 mg/dl (9-20) H 12/21/23 04:14
Creatinine 0.8 mg/dL (0.7-1.3) 12/21/23 04:14
eGFR > 60.00 12/21/23 04:14
Glucose 117 mg/dl (70-99) H 12/21/23 04:14
Calcium 8.9 mg/dl (8.4-10.2) 12/21/23 04:14
Igq-X-Buoqeedxvyd Pept 2050 pg/ml 12/20/23 02:42
Albumin 3.7 g/dl (3.5-5.0) 12/13/23 04:28
Physical Exam
-
Vital Signs:
Vital Signs
Temp Pulse Resp BP Pulse Ox
97.4 F 76 20 117/81 100
12/21/23 07:23 12/21/23 05:00 12/21/23 07:23 12/21/23 04:10 12/21/23 07:23
Cardiovascular:: Regular rate and rhythm
Lung Excursion:: Abnormal (shallow breathing)
Abdomen:: Nontender and Soft
Extremity Edema:: None: Bilateral:
Deleon Catheter: No
--- NOTE | 2023-12-21 12:34 | PTCARENOTE ---
Pt very drowsy today. He did wake up enough to take his meds and eat a little breakfast earlier. His sodium level 123 today. Attempted to stand him up for weight and orthostatic VS but he could not hold his head up. Dr Kothari notified. BP 110/65, Pt
remains in A-fib 70-80's. CT scan of the head ordered and ABG's ordered.
[2023-12-21 12:38] LABS: B.E. 13.2 mmol/L; O2 Saturation % 96.9 % (94-98); PO2 81 mmHg (83-108); pH 7.21 (7.35-7.45)
[2023-12-21 12:40] LABS: HCO3 46.8 mmol/L (21-28); PCO2 > 115 mmHg (35-48)
--- NOTE | 2023-12-21 12:40 | CM ---
Chart reviewed. Patient more lethargic and deconditioned. PT/OT evaluation recommending SNF. [facility]errals sent to [facility] [place] and [facility]. Patient's prefers [facility] [place], closest to their home.
Patient is independent of ADLS, lives with his and son in a [address], ambulates with a rolling walker and SPC. Plan is for the patient to go to SNF once medically stable for discharge. CM to follow
[2023-12-21] MEDS: SODIUM CHLORIDE 3% 250 IV (12:52)
--- NOTE | 2023-12-21 13:03 | W.PN.HOSP.TC ---
Today's Communication/Plan
-
Acute CO2 Narcosis
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
- no evidence of PNA, floorid CHF, no prior COPD/smoking hx, no sedatives
- d/w family about vent but high concern that patient would be permanently vent dependant and facility bound. Also discussed patients difficult to manage CHF/diuretic/sodium scenario. Family has agreed to BiPAP temporarily and comfort measures/DNR.
Assessment / Plan
Assessment / Plan
Assessment:
acute CO2 Narcosis
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
- no evidence of PNA, floorid CHF, no prior COPD/smoking hx, no sedatives
- d/w family about vent but high concern that patient would be permanently vent dependant and facility bound. Also discussed patients difficult to manage CHF/diuretic/sodium scenario. Family has agreed to BiPAP temporarily and comfort measures/DNR.
Acute hypoxic respiratory insufficiency
- resolved
Acute on chronic HFrEF
- Chest x-ray shows cardiomegaly, possible mild pulmonary edema
- Cardiac BNP of 3000
- Check I's and O's, daily weight
- IV Lasix held; eventually add back PO Lasix
- continue Coreg
- Entresto/Aldactone stopped for hypotension
- appreciate DCA Cards
Persistent atrial fibrillation
- continue BB
- continue Amiodarone load 200mg BID x 2 weeks, then 200mg daily
- switched to Eliquis from Coumadin
Acute hyponatremia
- Nephrology following
- IV Lasix held; eventually add back PO Lasix
- no improvement with Samsca, Urea-Na 15g BID added. Re-dosed Samsca today per Renal
Fall with head trauma
- Bruise in left frontotemporal
- No hemorrhagic changes on CT
- continue to monitor neuro-checks but no signs of concussive mentation
- Mental status changes of the 27th evening may have been in relation to combination of lack of sleep and hyponatremia
- PT/OT - VN
Underlying neuromuscular disorder
- daughter requesting LP,�recommend patient follow-up with his neurologist at [place] regarding further testing
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
degeneration, however no motor neuron disease cannot be ruled out due to active denervation in bilateral L5/S1 nerve root innervated muscles'.�His neurologist was considering diagnosis of ALS.
- PT/OT - VN
Lack of appetite/ weight loss
- Metastatic rather extensive GI workup at [facility] which he is going to continue to follow and I believe he is scheduled for a upper endoscopy
- Unclear etiology, could be related to underlying neuromuscular disorder
- Continue to follow-up with GI
Stage 2 gluteal cleft pressure injury
moderate protein calorie malnutrition
Hypokalemia
DVT ppx: Eliquis
Code: DNR
Anticipated Discharge: Today
Subjective/Interval History
-
Date of Service: December 21, 2023
less responsive currently, shallow breathing
ABG with advanced CO2 retention, acidosis
d/w family and daughter, they agree that patient unlikely to get off the VENT and therefore agreeable to making patient comfortably and on BiPAP for now until they can arrive.
Objective Data
-
Labs:
Laboratory Results
12/21/23 12/21/23 12/21/23
04:14 12:27 15:00
WBC 8.4
Hgb 14.5
Hct 42.7
Plt Count 203
HCO3 46.8 H*
Sodium 123 L Pending
Potassium 4.4
Chloride 80 L
Carbon Dioxide 38 H
BUN 46 H
Creatinine 0.8
Glucose 117 H
Calcium 8.9
12/21/23 12/21/23
19:00 23:00
WBC
Hgb
Hct
Plt Count
HCO3
Sodium Pending Pending
Potassium
Chloride
Carbon Dioxide
BUN
Creatinine
Glucose
Calcium
Vital Signs:
Vital Signs
Temp Pulse Resp BP Pulse Ox
97.4 F 76 20 117/81 100
12/21/23 07:23 12/21/23 05:00 12/21/23 07:23 12/21/23 04:10 12/21/23 07:23
I&O
12/20/23 12/21/23 12/22/23
06:59 06:59 06:59
Intake Total 1110 / 1110
Output Total 250 / 250
Balance 860 / 860
Physical Exam
-
General: Appears Chronically Ill
HEENT: Normocephalic and Atraumatic
Respiratory: Decreased Breath Sounds
Cardiac: Regular Rhythm
GI: Soft
Neuro: Other (somnolent)
Data Reviewed
-
Total Time Spent with Patient (in minutes): 45
--- NOTE | 2023-12-21 13:37 | PTCARENOTE ---
Pt O2@ sat 100% on 2L. Pt ABG result very abnormal, PCO2 >115, Dr Kothari aware and discussed plan with , she does not wish for him to be intubated. Pt placed on comfort measures and code status changed to DNR at family's request.
--- NOTE | 2023-12-21 15:23 | CHAP ---
Addendum entered by Maryjane Santa 12/21/23 15:47:
Fr. Joyce is on his way.
Original Note:
Voice mail left for Fr. Joyce ( on-call wafer cleaner) to request [facility]. Awaiting call back.
[2023-12-21] MEDS: MORPHINE SULFATE 2 MG IV ×2 (17:01→20:53)
--- NOTE | 2023-12-21 18:33 | W.PN.UPDATE ---
Update Note
Progress Note Update
pt is now comfort measures
not much to offer from nephro stand point
will s/o, call with ?s
3% saline stopped earlier
d/w primary
--- NOTE | 2023-12-21 18:41 | PTCARENOTE ---
Pt restless this evening and tachypneic, med with morphine 2 mg IV as ordered with relief noted. Pt taken off biPAP and placed on O2 at 2L/min
--- NOTE | 2023-12-21 22:00 | PTCARENOTE ---
Assumed care of patient at change of shift. Patient maintained on comfort care measures. Family at bedside. Patient sating 100% on 2L, and BP stable. Patient arouses to verbal, and nods head appropriately. Family aware of POC, call teran within
reach.
[2023-12-22] MEDS: MORPHINE SULFATE 2 MG IV ×2 (00:48→14:01)
[2023-12-22 09:26] VITALS: BP 90/61
--- NOTE | 2023-12-22 11:53 | CM ---
Chart reviewed. Patient was placed on comfort care. Family at bedside. Patient [place] and son in [place] [address] [facility] [place]. CM to follow
--- NOTE | 2023-12-22 13:19 | W.PN.HOSP.TC ---
Today's Communication/Plan
-
maximize comfort
transfer to 2N hospice floor
Assessment / Plan
Assessment / Plan
Assessment:
acute CO2 Narcosis
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
- no evidence of PNA, florid CHF, no prior COPD/smoking hx, no sedatives
- d/w family about vent but high concern that patient would be permanently vent dependant and facility bound. Also discussed patients difficult to manage CHF/diuretic/sodium scenario. Family has agreed to BiPAP temporarily and comfort measures/DNR.
Acute hypoxic respiratory insufficiency
- resolved
Acute on chronic HFrEF
- Chest x-ray shows cardiomegaly, possible mild pulmonary edema
- Cardiac BNP of 3000
- Check I's and O's, daily weight
- IV Lasix held; eventually add back PO Lasix
- continue Coreg
- Entresto/Aldactone stopped for hypotension
- appreciate [facility] Cards
Persistent atrial fibrillation
- continue BB
- continue Amiodarone load 200mg BID x 2 weeks, then 200mg daily
- switched to Eliquis from Coumadin
Acute hyponatremia
- Nephrology following
- IV Lasix held; eventually add back PO Lasix
- no improvement with Samsca, Urea-Na 15g BID added. Re-dosed Samsca today per Renal
Fall with head trauma
- Bruise in left frontotemporal
- No hemorrhagic changes on CT
- continue to monitor neuro-checks but no signs of concussive mentation
- Mental status changes of the 27th evening may have been in relation to combination of lack of sleep and hyponatremia
- PT/OT - VN
Underlying neuromuscular disorder
- daughter requesting LP,�recommend patient follow-up with his neurologist at [facility] regarding further testing
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
degeneration, however no motor neuron disease cannot be ruled out due to active denervation in bilateral L5/S1 nerve root innervated muscles'.�His neurologist was considering diagnosis of ALS.
- PT/OT - VN
Lack of appetite/ weight loss
- Metastatic rather extensive GI workup at [facility] which he is going to continue to follow and I believe he is scheduled for a upper endoscopy
- Unclear etiology, could be related to underlying neuromuscular disorder
- Continue to follow-up with GI
Stage 2 gluteal cleft pressure injury
moderate protein calorie malnutrition
Hypokalemia
DVT ppx: Eliquis
Code: DNR
Anticipated Discharge: 24 - 48 hours
Subjective/Interval History
-
Date of Service: December 22, 2023
appears comfortable, used 3 morphine boluses through the evening/night
family at bedside
Objective Data
-
Vital Signs:
Vital Signs
Temp Pulse Resp BP Pulse Ox
97.4 F 79 20 90/61 100
12/21/23 07:23 12/22/23 10:00 12/21/23 19:51 12/22/23 09:26 12/22/23 08:02
I&O
12/21/23 12/22/23 12/23/23
06:59 06:59 06:59
Output Total 200 / 200
Balance -200 / -200
Physical Exam
-
General: No Apparent Distress
HEENT: Normocephalic and Atraumatic
Respiratory: Chest Tubes (shallow breaths)
Cardiac: Regular Rhythm and S1/S2
GI: Soft
Neuro: Sedated
Data Reviewed
-
Total Time Spent with Patient (in minutes): 40
Labs: Labs Reviewed by me
--- NOTE | 2023-12-22 13:31 | PTCARENOTE ---
Pt turned and repositioned q2h for comfort. Incontinent of mod amt urine this morning. Skin intact. Family at bedside.
--- NOTE | 2023-12-22 14:26 | PTCARENOTE ---
Pt slightly restless, HR slowing down. Pt's family asked if Pt could have morphine. Pt med with Morphine 2 mg IV as ordered for resp distress, restlessness. Pt's HR continued to slow and gradually stopped. Family at bedside with Pt. Dr Kothari aware.
--- NOTE | 2023-12-22 14:45 | W.PN.DEATH ---
Pronouncement of
-
Called to see patient to pronounce.
No spontaneous heart tones or respirations noted.
Patient not responsive to verbal stimuli.
Patient is pronounced .
Time of : 14:02
Date of : 12/22/23
Cause of : acute hypercapnic and hypoxic respiratory failure from congestive heart failure
Family Notified: No
--- NOTE | 2023-12-22 14:58 | PTCARENOTE ---
Dr Kothari came to pronounce Pt. [facility] notified of Pt's .
== END 2023-12-22 15:56 | disposition expired | DRG 291 ==
LOC: IVU 21:06
PROVIDERS: Emergency Medicine; Internal Medicine; Nurse Practitioner Gerontology; Physician Assistant; Specialist; ADMITTING PHYSICIAN Hospitalist; ATTENDING PHYSICIAN Internal Medicine; CONSULT PHYSICIAN Internal Medicine; CONSULT PHYSICIAN Nuclear Medicine Nuclear Cardiology; EMERGENCY PHYSICIAN Emergency Medicine; FAMILY PHYSICIAN Family Medicine
DX: I50.23 Acute on chronic systolic (congestive) heart failure (principal); J96.01 Acute respiratory failure with hypoxia; J96.02 Acute respiratory failure with hypercapnia; E44.0 Moderate protein-calorie malnutrition; I48.21 Permanent atrial fibrillation; E87.1 Hypo-osmolality and hyponatremia; R64 Cachexia; Z68.1 Body mass index [BMI] 19.9 or less, adult; E87.3 Alkalosis; G70.9 Myoneural disorder, unspecified; I95.9 Hypotension, unspecified; I08.1 Rheumatic disorders of both mitral and tricuspid valves; Z79.01 Long term (current) use of anticoagulants; L89.92 Pressure ulcer of unspecified site, stage 2; E87.6 Hypokalemia
CPT/HCPCS: 36600; 70450; 71045; 71046; 80048; 80053; 82533; 82570; 82805; 82962; 83735; 83880; 83935; 84145; 84295; 84300; 84443; 84484; 85025; 85027; 85610; 93005; 93306; 94660; 97530; 97535; 99285